=== PATIENT | female | born 1990 | race Caucasian/White ===

== ENCOUNTER 2020-05-05 11:13 | Outpatient (REF) | payer OTHER, SELFPAY ==
[2020-05-05 14:01] LABS: MANUAL DIFF FLAG NO
[2020-05-05 14:02] LABS: Basophils Percent Auto 0.4 % (0-2); Eosinophils Absolute Auto 0.1 X10*3/uL (0.0-0.4); Eosinophils Percent Auto 1.7 % (0-4); Hematocrit 31.6 % (37-47); Hemoglobin 9.4 g/dl (12.0-16.0); Imm Gran Abs Auto 0.01 X10*3/uL (0.00-0.03); Imm Gran Pct Auto 0.2 % (0.0-0.4); Lymphocytes Absolute Auto 1.6 X10*3/uL (1.2-4.9); Lymphocytes Percent Auto 34.7 % (20-40); Mean Corpuscular HGB Conc 29.7 g/dl (31.0-35.0); Mean Corpuscular Hemoglobin 22.7 pg (27.0-33.0); Mean Corpuscular Volume 76.1 fL (80-98); Mean Platelet Volume 12.1 fL (9.4-12.3); Monocytes Absolute Auto 0.4 X10*3/uL (0.1-1.2); Monocytes Percent Auto 8.5 % (2-11); Neutrophils Absolute Auto 2.5 X10*3/uL (2.0-8.3); Neutrophils Percent Auto 54.5 % (45-73); Platelet Count 242 X10*3/uL (160-400); Red Blood Count 4.15 X10*6/uL (4.20-5.50); Red Cell Distribution Width 14.6 % (11.0-16.0); White Blood Count 4.6 X10*3/uL (4.8-10.8)
[2020-05-05 14:34] LABS: Iron 15 mcg/dL (30-160); Percent Iron Saturation 3 % (15-50); Total Iron Binding Capacity 444 mcg/dL (228-428); Unsaturated Iron Binding 429 ug/dL
[2020-05-05 14:59] LABS: Ferritin < 1 ng/mL (10-122)
== END 2020-05-05 11:14 | disposition home or self-care (01) ==
LOC: HO.HMGCLDS 11:13
PROVIDERS: PCP Nurse Practitioner Family; Visit Provider Nurse Practitioner Family
DX: E61.1 Iron deficiency (principal)
CPT/HCPCS: 36415; 82728; 83540; 85025

== ENCOUNTER 2020-05-12 09:02 | Outpatient (REF) | payer OTHER, SELFPAY ==
--- NOTE | 2020-05-12 09:07 | US_ITS ---
EXAMINATION: US ABDOMEN COMPLETE CLINICAL INFORMATION: Cholesterolosis of the gallbladder. COMPARISON: Ultrasound 09/13/2019 TECHNIQUE: Real-time imaging of the abdominal viscera. FINDINGS: PANCREAS: Normal. ABDOMINAL AORTA: The proximal, mid, and distal segments are normal in caliber. INFERIOR VENA CAVA: Visualized portions are normal. LIVER: Normal. The liver is normal in size. The liver contour is normal. Parenchymal echogenicity is normal. No focal hepatic lesion. There is no intrahepatic biliary duct dilatation seen. GALLBLADDER: There is a 4 mm nondependent gallbladder wall polyp, similar in appearance to the prior study. The gallbladder is physiologically distended without evidence of stones, sludge, wall thickening or pericholecystic fluid. COMMON BILE DUCT: Normal in caliber measuring 0.4 cm in diameter. RIGHT KIDNEY: Normal. No hydronephrosis. No renal calculi or focal parenchymal lesions. The kidney measures 10.8 cm in maximum dimension. LEFT KIDNEY: Normal. No hydronephrosis. No renal calculi or focal parenchymal lesions. The kidney measures 10.2 cm in maximum dimension. SPLEEN: Normal. The spleen measures 10.4 cm in maximum dimension. FREE FLUID: None. US/US abdomen complete IMPRESSION: 4 mm nondependent gallbladder wall polyp is seen. This previously measured 3 mm, not convincingly changed. There are differing management algorithms advocated for in the radiology literature for small gallbladder wall polyps of this size. Some suggest annual ultrasound follow-up while others suggest no follow-up is needed.
== END 2020-05-12 09:03 | disposition home or self-care (01) ==
LOC: HO.HMGCX 09:02
PROVIDERS: PCP Nurse Practitioner Family; Visit Provider Nurse Practitioner Family
DX: K82.4 Cholesterolosis of gallbladder (principal)
CPT/HCPCS: 76700

== ENCOUNTER → 2020-06-23 09:19 | Outpatient (BNV) | payer OTHER, SELFPAY | PROVIDERS: PCP Nurse Practitioner Family; Referring Provider Nurse Practitioner Family; Visit Provider Internal Medicine | DX: D50.9 Iron deficiency anemia, unspecified (principal) | CPT/HCPCS: 99203; 99213; 99214 ==

== ENCOUNTER 2020-07-08 09:45 | Outpatient (REF) | payer OTHER, SELFPAY | END 2020-07-08 09:46 | disposition home or self-care (01) | LOC: HO.MDS 09:45 | PROVIDERS: PCP Nurse Practitioner Family; Visit Provider Internal Medicine | DX: D50.9 Iron deficiency anemia, unspecified (principal) | CPT/HCPCS: 96365; J1756 ==

== ENCOUNTER 2020-07-14 13:11 | Outpatient (REF) | payer OTHER, SELFPAY | END 2020-07-14 13:12 | disposition home or self-care (01) | LOC: HO.MDS 13:11 | PROVIDERS: PCP Nurse Practitioner Family; Visit Provider Internal Medicine | DX: D50.9 Iron deficiency anemia, unspecified (principal) | CPT/HCPCS: 96365; J1756 ==

== ENCOUNTER 2020-07-24 10:55 | Outpatient (REF) | payer OTHER, SELFPAY | END 2020-07-24 10:56 | disposition home or self-care (01) | LOC: HO.MDS 10:55 | PROVIDERS: PCP Nurse Practitioner Family; Visit Provider Internal Medicine | DX: D50.9 Iron deficiency anemia, unspecified (principal) | CPT/HCPCS: 96365; J1756 ==

== ENCOUNTER 2020-10-01 08:06 | Outpatient (REF) | payer OTHER, SELFPAY | END 2020-10-01 08:07 | disposition home or self-care (01) | LOC: HO.MDS 08:06 | PROVIDERS: PCP Nurse Practitioner Family; Visit Provider Internal Medicine | DX: D50.9 Iron deficiency anemia, unspecified (principal) | CPT/HCPCS: 96365; 96366; J1200; J1750; Q0163 ==

== ENCOUNTER 2020-10-06 09:31 | Outpatient (REF) | payer OTHER, SELFPAY ==
[2020-10-06 11:11] LABS: MANUAL DIFF FLAG NO
[2020-10-06 11:27] LABS: Basophils Percent Auto 0.3 % (0-2); Eosinophils Absolute Auto 0.1 X10*3/uL (0.0-0.4); Eosinophils Percent Auto 1.4 % (0-4); Hematocrit 36.1 % (37-47); Hemoglobin 10.6 g/dl (12.0-16.0); Imm Gran Abs Auto 0.01 X10*3/uL (0.00-0.03); Imm Gran Pct Auto 0.2 % (0.0-0.4); Lymphocytes Absolute Auto 1.2 X10*3/uL (1.2-4.9); Lymphocytes Percent Auto 19.7 % (20-40); Mean Corpuscular HGB Conc 29.4 g/dl (31.0-35.0); Mean Corpuscular Hemoglobin 23.3 pg (27.0-33.0); Mean Corpuscular Volume 79.3 fL (80-98); Mean Platelet Volume 11.7 fL (9.4-12.3); Monocytes Absolute Auto 0.5 X10*3/uL (0.1-1.2); Monocytes Percent Auto 7.8 % (2-11); Neutrophils Absolute Auto 4.2 X10*3/uL (2.0-8.3); Neutrophils Percent Auto 70.6 % (45-73); Platelet Count 248 X10*3/uL (160-400); Red Blood Count 4.55 X10*6/uL (4.20-5.50); Red Cell Distribution Width 16.1 % (11.0-16.0); White Blood Count 5.9 X10*3/uL (4.8-10.8)
[2020-10-06 11:53] LABS: Alanine Aminotransferase 27 U/L (0-31); Albumin Level 4.4 g/dL (3.5-5.0); Alkaline Phosphatase 50 U/L (39-117); Anion Gap 13 (12-20); Aspartate Amino Transferase 23 U/L (5-31); Bilirubin Total 0.6 mg/dL (0.0-1.0); Blood Urea Nitrogen 17 mg/dL (9-16); Calcium 8.7 mg/dL (8.4-10.2); Carbon Dioxide 25 mmol/L (22-29); Chloride 106 mmol/L (96-108); Estimated Glomerular Filt Rate > 60; Glucose Random 80 mg/dL (60-115); Iron 197 mcg/dL (30-160); Percent Iron Saturation 41 % (15-50); Potassium 3.5 mmol/L (3.3-5.1); Sodium 140 mmol/L (135-145); Total Iron Binding Capacity 485 mcg/dL (228-428); Total Protein 7.2 g/dL (6.5-8.0); Unsaturated Iron Binding 288 ug/dL
[2020-10-06 11:56] LABS: Ferritin 662 ng/mL (10-122); TSH reflex Free T4 0.52 uIU/mL (0.32-4.0)
== END 2020-10-06 09:32 | disposition home or self-care (01) ==
LOC: HO.HMGCLDS 09:31
PROVIDERS: PCP Nurse Practitioner Family; Visit Provider Nurse Practitioner Family
DX: E61.1 Iron deficiency (principal); R53.83 Other fatigue
CPT/HCPCS: 36415; 80053; 82728; 83540; 84443; 85025

== ENCOUNTER 2020-10-15 08:34 | Outpatient (REF) | payer OTHER, SELFPAY ==
--- NOTE | ~2020-10-15 | US_ITS ---
EXAMINATION: US ABDOMEN COMPLETE CLINICAL INFORMATION: Cholesterolosis of gallbladder. COMPARISON: Ultrasound abdomen complete dated 05/12/2020 and 09/13/2019. TECHNIQUE: Real-time imaging of the abdominal viscera. FINDINGS: PANCREAS: Normal. ABDOMINAL AORTA: The proximal, mid, and distal segments are normal in caliber. INFERIOR VENA CAVA: Visualized portions are normal. LIVER: Normal. The liver is normal in size. The liver contour is normal. Parenchymal echogenicity is normal. No focal hepatic lesion. There is no intrahepatic biliary duct dilatation seen. GALLBLADDER: There is a 4 x 4 by 3 mm hypoechoic lesion adjacent to the gallbladder wall that does not move or shadow suggestive of a polyp. This is similar to previous exam. No gallstones are seen. The gallbladder is normal in size. The gallbladder wall is otherwise normal. COMMON BILE DUCT: Normal in caliber measuring 0.4 cm in diameter. RIGHT KIDNEY: There is a 2 mm echogenic density with twinkle artifact in the upper pole questionable for a stone. No hydronephrosis or focal parenchymal lesions. The kidney measures 11.3 cm in maximum dimension. LEFT KIDNEY: Normal. No hydronephrosis. No renal calculi or focal parenchymal lesions. The kidney measures 9.8 cm in maximum dimension. SPLEEN: Normal. The spleen measures 10.9 cm in maximum dimension. FREE FLUID: None. US/US abdomen complete IMPRESSION: Stable small gallbladder wall polyp. Question small right renal stone.
== END 2020-10-15 08:35 | disposition home or self-care (01) ==
LOC: HO.US 08:34
PROVIDERS: Visit Provider Nurse Practitioner Family
DX: K82.4 Cholesterolosis of gallbladder (principal)
CPT/HCPCS: 76700

== ENCOUNTER 2020-12-29 11:30 | Outpatient (RCR) | payer OTHER, SELFPAY ==
--- NOTE | 2020-12-24 11:59 | MHC.PT.EP ---
[facility] [place] Office [place] [facility] [place] Office [address] [phone] F: [phone] F: [phone] F: [phone] F: [phone] Physical Therapy Plan of Care Date of Evaluation: Date of Surgery: NA Diagnosis: Dizziness and Giddiness Assessment: Charito is a 30 year old female referred to PT for dizziness and giddiness . On PT examination she presented with normal saccades, smooth pursuit, static and dynamic balance hoewver her DVA was 5 lines and she was positive for left PC and HC BPPV. 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 She is motivated for PT. Frequency and Duration: The patient will be seen 2x week for 4 weeks Short Term Goals: 1. Patient to be educated on symptoms and indications to return to therapy when needed min 4 weeks. 2. Pt will be negative for nystagmus or reports of vertigo in all diagnostic positions bilaterally to resolution of BPPV in 4 weeks. Clinical Documentation Manager Goals: 1. Patient to be able to functionally move in all planes and directions without provocation of dizziness to show return to PLOF in 6 weeks. Treatment Plan: Modalities to reduce pain, spasms and effusion. Manual therapy to restore motion and function. Therapeutic exercise to improve strength and flexibility. Neuromuscular re-education for posture and balance. Therapeutic activities to return to functional activities of daily living. Electronically signed by: Shruthi Weber PT DPT Please sign and return to therapist. Thank you for your referral.
--- NOTE | 2021-01-29 14:38 | MHC.PT.DC ---
[facility] [place] Office [place] Office [place] Office [address] [facility] [phone] F: [phone] F: [phone] F: [phone] F: [phone] Physical Therapy Discharge Report Diagnosis: Dizziness and Giddiness Date of Surgery: NA Date of Evaluation: 12/24/20 Date of Discharge: 01/29/21 Treatments to Date: 2 Cancellations to Date: 0 No Shows to Date: 0 Discharge Status: Achieved Goals Improved Function Discharge Summary: Charito did not have any of symptoms of vestibular dysfunction for over a month. She has therefore been d/c from therapy Electronically signed by: Shruthi Weber PT DPT Please sign and return to therapist. Thank you for your referral.
== END 2021-01-29 14:39 | disposition home or self-care (01) ==
LOC: HO.PT 11:30
PROVIDERS: PCP Nurse Practitioner Family; Visit Provider Nurse Practitioner Family
DX: R42 Dizziness and giddiness (principal)
CPT/HCPCS: 95992; 97112; 97161

== ENCOUNTER 2021-03-10 09:35 | Outpatient (REF) | payer OTHER, SELFPAY ==
[2021-03-10 11:09] LABS: MANUAL DIFF FLAG NO
[2021-03-10 11:18] LABS: Basophils Percent Auto 0.4 % (0-2); Eosinophils Absolute Auto 0.1 X10*3/uL (0.0-0.4); Eosinophils Percent Auto 1.9 % (0-4); Hematocrit 39.4 % (37-47); Hemoglobin 13.1 g/dl (12.0-16.0); Imm Gran Abs Auto 0.02 X10*3/uL (0.00-0.03); Imm Gran Pct Auto 0.4 % (0.0-0.4); Lymphocytes Absolute Auto 1.7 X10*3/uL (1.2-4.9); Lymphocytes Percent Auto 37.1 % (20-40); Mean Corpuscular HGB Conc 33.2 g/dl (31.0-35.0); Mean Corpuscular Hemoglobin 28.9 pg (27.0-33.0); Mean Corpuscular Volume 86.8 fL (80-98); Mean Platelet Volume 11.2 fL (9.4-12.3); Monocytes Absolute Auto 0.4 X10*3/uL (0.1-1.2); Monocytes Percent Auto 8.2 % (2-11); Neutrophils Absolute Auto 2.4 X10*3/uL (2.0-8.3); Platelet Count 201 X10*3/uL (160-400); Red Blood Count 4.54 X10*6/uL (4.20-5.50); Red Cell Distribution Width 11.9 % (11.0-16.0); White Blood Count 4.6 X10*3/uL (4.8-10.8)
[2021-03-10 11:27] LABS: Appearance Urine HAZY; Color Urine YELLOW; Glucose Urine UA NEG (NEG); Leukocyte Esterase Urine NEG (NEG); Nitrite Urine NEG (NEG); PH 7.5 (5.0-8.0); Urine Blood NEG (NEG); Urine Ketones NEG (NEG); Urine Protein NEG (NEG-TRACE)
[2021-03-10 12:03] LABS: Ferritin 34 ng/mL (10-122); TSH reflex Free T4 0.62 uIU/mL (0.32-4.0)
[2021-03-10 12:10] LABS: Alanine Aminotransferase 23 U/L (0-31); Albumin Level 4.5 g/dL (3.5-5.0); Alkaline Phosphatase 55 U/L (39-117); Anion Gap 13 (12-20); Aspartate Amino Transferase 19 U/L (5-31); Bilirubin Total 0.7 mg/dL (0.0-1.0); Blood Urea Nitrogen 11 mg/dL (9-16); Calcium 9.3 mg/dL (8.4-10.2); Carbon Dioxide 23 mmol/L (22-29); Chloride 107 mmol/L (96-108); Cholesterol 151 mg/dL; Estimated Glomerular Filt Rate > 60; Glucose Fasting 74 mg/dL (60-99); HDL Cholesterol 51 mg/dL; Iron 62 mcg/dL (30-160); LDL Cholesterol Calculated 88 mg/dl; Percent Iron Saturation 17 % (15-50); Sodium 139 mmol/L (135-145); Total Iron Binding Capacity 357 mcg/dL (228-428); Total Protein 7.6 g/dL (6.5-8.0); Triglycerides 60 mg/dL; Unsaturated Iron Binding 295 ug/dL
== END 2021-03-10 09:36 | disposition home or self-care (01) ==
LOC: HO.HMGCLDS 09:35
PROVIDERS: PCP Nurse Practitioner Family; Visit Provider Nurse Practitioner Family
DX: Z00.00 Encounter for general adult medical examination without abnormal findings (principal); E61.1 Iron deficiency
CPT/HCPCS: 36415; 80053; 80061; 81003; 82728; 83540; 84443; 85025

== ENCOUNTER 2021-03-24 14:53 | Outpatient (REF) | payer OTHER, SELFPAY | END 2021-03-24 14:54 | disposition home or self-care (01) | LOC: HO.LAB 14:53 | PROVIDERS: Visit Provider Physician Assistant Medical | DX: Z20.822 Contact with and (suspected) exposure to COVID-19 (principal) | CPT/HCPCS: 87071; U0003; U0005 ==

== ENCOUNTER 2021-11-24 08:50 | Outpatient (REF) | payer OTHER, SELFPAY ==
--- NOTE | ~2021-11-24 | US_ITS ---
EXAMINATION: US ABDOMEN LIMITED CLINICAL INFORMATION: Cholesterolosis of the gallbladder. COMPARISON: Ultrasound abdomen complete 10/15/2020 and 05/12/2020. CT abdomen and pelvis 07/20/2015. TECHNIQUE: Real-time imaging of the right upper quadrant abdominal viscera. FINDINGS: PANCREAS: Normal. LIVER: Normal. The liver is normal in size. The liver contour is normal. Parenchymal echogenicity is normal. No focal hepatic lesion. There is no intrahepatic biliary duct dilatation seen. GALLBLADDER: Gallbladder polyp is noted measuring 3 x 4 x 4 mm, similar to previous. The gallbladder is physiologically distended without evidence of stones, sludge, wall thickening or pericholecystic fluid. COMMON BILE DUCT: Normal in caliber measuring 0.3 cm in diameter. RIGHT KIDNEY: Normal. No hydronephrosis. No renal calculi or focal parenchymal lesions. The kidney measures 11.0 cm in maximum dimension. FREE FLUID: None. US/US abdomen limited IMPRESSION: Gallbladder polyp is once again seen not significantly changed from previous. No ductal dilatation. No evidence of gallbladder wall edema.
== END 2021-11-24 08:51 | disposition home or self-care (01) ==
LOC: HO.US 08:50
PROVIDERS: Visit Provider Nurse Practitioner Family
DX: K82.4 Cholesterolosis of gallbladder (principal)
CPT/HCPCS: 76705

== ENCOUNTER 2022-03-15 10:18 | Outpatient (REF) | payer OTHER, SELFPAY ==
[2022-03-15 11:39] LABS: Basophils Percent Auto 0.7 % (0-2); Eosinophils Absolute Auto 0.1 X10*3/uL (0.0-0.4); Eosinophils Percent Auto 2.1 % (0-4); Hematocrit 34.3 % (37.0-47.0); Hemoglobin 10.8 g/dl (12.0-16.0); Lymphocytes Absolute Auto 1.6 X10*3/uL (1.2-4.9); Lymphocytes Percent Auto 54.5 % (20-40); Mean Corpuscular HGB Conc 31.5 g/dl (31.0-35.0); Mean Corpuscular Hemoglobin 24.4 pg (27.0-33.0); Mean Corpuscular Volume 77.6 fL (80.0-98.0); Mean Platelet Volume 11.4 fL (9.4-12.3); Monocytes Absolute Auto 0.3 X10*3/uL (0.1-1.2); Monocytes Percent Auto 11.5 % (2-11); Neutrophils Absolute Auto 0.9 x10*3/uL (2.0-8.3); Neutrophils Percent Auto 31.2 % (45-73); Platelet Count 220 X10*3/uL (160-400); Red Blood Count 4.42 X10*6/uL (4.20-5.50); Red Cell Distribution Width 13.8 % (11.0-16.0); SCAN SMEAR FLAG 1; White Blood Count 2.9 X10*3/uL (4.8-10.8)
[2022-03-15 11:42] LABS: Appearance Urine Clear; Color Urine Yellow; Glucose Urine UA Negative (Negative); Leukocyte Esterase Urine Trace (Negative); Nitrite Urine Negative (Negative); PH 6.5 (5.0-9.0); UMIC TRIGGER UACC YES; Urine Blood Large (3+) (Negative); Urine Ketones Trace mg/dL (Negative); Urine Protein Trace mg/dL (Neg-Trace)
[2022-03-15 11:58] LABS: Alanine Aminotransferase 17 U/L (0-31); Albumin Level 4.3 g/dL (3.5-5.0); Alkaline Phosphatase 47 U/L (39-117); Anion Gap 12 (12-20); Aspartate Amino Transferase 16 U/L (5-31); Bilirubin Total 0.6 mg/dL (0.0-1.0); Blood Urea Nitrogen 11 mg/dL (9-16); Calcium 9.1 mg/dL (8.4-10.2); Carbon Dioxide 25 mmol/L (22-29); Chloride 105 mmol/L (96-108); Cholesterol 146 mg/dL; Estimated Glomerular Filt Rate > 60; Glucose Fasting 86 mg/dL (60-99); HDL Cholesterol 40 mg/dL; LDL Cholesterol Calculated 92 mg/dl; Potassium 4.1 mmol/L (3.3-5.1); Sodium 138 mmol/L (135-145); Total Protein 7.4 g/dL (6.5-8.0); Triglycerides 73 mg/dL
[2022-03-15 12:07] LABS: TSH reflex Free T4 0.56 uIU/mL (0.32-4.0)
[2022-03-15 12:09] LABS: MANUAL DIFF FLAG NO
[2022-03-15 12:16] LABS: Bacteria Urine None Seen (None Seen); Hyaline Casts Urine 0-2 /LPF (0-2); RBC Urine >20 /HPF (0-2); WBC Urine 0-5 /HPF (0-5)
== END 2022-03-15 10:19 | disposition home or self-care (01) ==
LOC: HO.HMGCLDS 10:18
PROVIDERS: PCP Nurse Practitioner Family; Visit Provider Nurse Practitioner Family
DX: Z00.00 Encounter for general adult medical examination without abnormal findings (principal)
CPT/HCPCS: 36415; 80053; 80061; 81001; 84443; 85025

== ENCOUNTER 2022-03-25 14:38 | Outpatient (REF) | payer OTHER, SELFPAY ==
--- NOTE | ~2022-03-25 | US_ITS ---
EXAMINATION: US PELVIS CLINICAL INFORMATION: Last menstrual period approximately 2 weeks ago. COMPARISON: 02/28/2018 TECHNIQUE: Ultrasound of the pelvis is performed using both transabdominal and transvaginal transducers along with Doppler. Transvaginal imaging is performed due to inadequate visualization transabdominally. FINDINGS: The uterus is heterogeneous and measures approximately 11.4 x 4.9 x 7.6 cm on the right and 9.6 x 5.1 x 7.6 cm on the left. 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 Right uterine horn endometrial thickness is 1.2 cm and left 1.1 cm. Trace amount of fluid in the cervix and lower uterine segment. Small amount of free fluid in the pelvis. Nabothian cysts present. Unremarkable left ovary measures 3.5 x 1.7 x 1.5 cm, volume 4.9 mL. Right ovary measures 3.5 x 2.6 x 3.5 cm, volume 16.9 mL. Simple right ovarian cysts measure 1.2 x 1.9 x 2.0 cm and 1.6 x 2.0 x 2.2 cm. US/US pelvic and transvaginal IMPRESSION: 1. 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 2. Right ovarian 2.0 cm and 2.2 cm cysts appear simple. 3. Trace amount of fluid in the cervix or lower uterine segment. Small amount of free fluid in the pelvis.
== END 2022-03-25 14:39 | disposition home or self-care (01) ==
LOC: HO.HMGCX 14:38
PROVIDERS: Visit Provider Nurse Practitioner Family
DX: R10.2 Pelvic and perineal pain (principal)
CPT/HCPCS: 76830; 76856

== ENCOUNTER 2022-06-24 12:57 | Outpatient (REF) | payer OTHER, SELFPAY | END 2022-06-24 12:58 | disposition home or self-care (01) | LOC: HO.HMGCX 12:57 | PROVIDERS: PCP Nurse Practitioner Family; Visit Provider Obstetrics & Gynecology | DX: R10.2 Pelvic and perineal pain (principal); N83.209 Unspecified ovarian cyst, unspecified side | CPT/HCPCS: 76830; 76856 ==

== ENCOUNTER 2022-07-01 09:05 | Outpatient (REF) | payer OTHER, SELFPAY | END 2022-07-01 09:06 | disposition home or self-care (01) | LOC: HO.MDS 09:05 | PROVIDERS: Visit Provider Internal Medicine | DX: D50.9 Iron deficiency anemia, unspecified (principal) | CPT/HCPCS: 96365; J1756 ==

== ENCOUNTER 2022-07-08 13:24 | Outpatient (REF) | payer OTHER, SELFPAY | END 2022-07-08 13:25 | disposition home or self-care (01) | LOC: HO.MDS 13:24 | PROVIDERS: Visit Provider Internal Medicine | DX: Z53.8 Procedure and treatment not carried out for other reasons (principal) | CPT/HCPCS: 96365 ==

== ENCOUNTER 2022-07-08 13:30 | Outpatient (REF) | payer OTHER, SELFPAY | END 2022-07-08 13:31 | disposition home or self-care (01) | LOC: HO.MDS 13:30 | PROVIDERS: Visit Provider Internal Medicine | DX: D50.9 Iron deficiency anemia, unspecified (principal) | CPT/HCPCS: J1756 ==

== ENCOUNTER 2022-07-11 10:19 | Outpatient (REF) | payer OTHER, SELFPAY ==
[2022-07-11 11:20] LABS: MANUAL DIFF FLAG NO
[2022-07-11 11:28] LABS: Basophils Percent Auto 0.3 % (0-2); Eosinophils Absolute Auto 0.1 X10*3/uL (0.0-0.4); Eosinophils Percent Auto 1.8 % (0-4); Imm Gran Abs Auto 0.01 X10*3/uL (0.00-0.03); Imm Gran Pct Auto 0.3 % (0.0-0.4); Lymphocytes Absolute Auto 1.2 X10*3/uL (1.2-4.9); Lymphocytes Percent Auto 35.4 % (20-40); Mean Corpuscular HGB Conc 30.8 g/dl (31.0-35.0); Mean Corpuscular Hemoglobin 24.3 pg (27.0-33.0); Mean Corpuscular Volume 79.1 fL (80.0-98.0); Mean Platelet Volume 11.4 fL (9.4-12.3); Monocytes Absolute Auto 0.3 X10*3/uL (0.1-1.2); Monocytes Percent Auto 8.9 % (2-11); Neutrophils Absolute Auto 1.7 x10*3/uL (2.0-8.3); Neutrophils Percent Auto 53.3 % (45-73); Platelet Count 229 X10*3/uL (160-400); Red Blood Count 4.93 X10*6/uL (4.20-5.50); Red Cell Distribution Width 15.3 % (11.0-16.0); White Blood Count 3.3 X10*3/uL (4.8-10.8)
[2022-07-11 11:53] LABS: Anion Gap 13 (12-20)
[2022-07-11 12:03] LABS: Alanine Aminotransferase 14 U/L (0-31); Albumin Level 4.8 g/dL (3.5-5.0); Alkaline Phosphatase 51 U/L (39-117); Aspartate Amino Transferase 14 U/L (5-31); Bilirubin Total 0.9 mg/dL (0.0-1.0); C Reactive Protein < 0.04 mg/dL (< or = 0.50); Calcium 9.9 mg/dL (8.4-10.2); Carbon Dioxide 26 mmol/L (22-29); Chloride 104 mmol/L (96-108); Estimated Glomerular Filt Rate > 60; Glucose Random 84 mg/dL (60-115); Iron 77 mcg/dL (30-160); Percent Iron Saturation 21 % (15-50); Potassium 4.1 mmol/L (3.3-5.1); Rheumatoid Factor < 13.0 IU/mL (<15.0); Sodium 139 mmol/L (135-145); Total Iron Binding Capacity 371 mcg/dL (228-428); Total Protein 7.9 g/dL (6.5-8.0); Unsaturated Iron Binding 294 ug/dL
[2022-07-11 12:12] LABS: Erythrocyte Sedimentation Rate 6 MM/HR (0-20)
[2022-07-11 12:27] LABS: Blood Urea Nitrogen 12 mg/dL (9-16)
[2022-07-11 12:31] LABS: Folate 8.2 ng/mL (> or = 4.0); Vitamin B12 307 pg/mL (200-900)
[2022-07-11 12:36] LABS: Ferritin 149 ng/mL (10-122); TSH reflex Free T4 0.63 uIU/mL (0.32-4.0)
[2022-07-13 14:43] LABS: Cyclic Citrullinated Peptide <16 UNITS
[2022-07-13 22:29] LABS: A. Phagocytphilium DNA,RT-PCR NOT DETECTED (NOT DETECTED); Babesia Microti DNA, RT-PCR NOT DETECTED (NOT DETECTED); Borrelia Miyamotoi,DNA RT-PCR NOT DETECTED (NOT DETECTED); E.Chaffeensis DNA RT-PCR NOT DETECTED (NOT DETECTED); Lyme(Borrelia ssp)DNA RT-PCR NOT DETECTED (NOT DETECTED)
[2022-07-14 12:24] LABS: Anti Nuclear Antibody Screen POSITIVE (NEGATIVE)
[2022-07-16 12:43] LABS: DNAds, Crithidia Antibody Negative (Negative)
== END 2022-07-11 10:20 | disposition home or self-care (01) ==
LOC: HO.HMGCLDS 10:19
PROVIDERS: PCP Nurse Practitioner Family; Visit Provider Nurse Practitioner Family
DX: E61.1 Iron deficiency (principal); M79.606 Pain in leg, unspecified
CPT/HCPCS: 36415; 80053; 82550; 82607; 82728; 82746; 83540; 84443; 85025; 85652; 86038; 86039; 86140; 86200; 86255; 86431; 87798; 87801

== ENCOUNTER 2022-07-12 09:34 | Outpatient (REF) | payer OTHER, SELFPAY | END 2022-07-12 09:35 | disposition home or self-care (01) | LOC: HO.MDS 09:34 | PROVIDERS: Visit Provider Internal Medicine | DX: D50.9 Iron deficiency anemia, unspecified (principal) | CPT/HCPCS: 96365; J1756 ==

== ENCOUNTER → 2022-10-25 09:41 | Outpatient (BNVA) | payer OTHER, SELFPAY | PROVIDERS: PCP Nurse Practitioner Family; Visit Provider Student in an Organized Health Care Education/Training Program | DX: R76.8 Other specified abnormal immunological findings in serum (principal); D50.0 Iron deficiency anemia secondary to blood loss (chronic) | CPT/HCPCS: 99202 ==

== ENCOUNTER 2023-03-13 10:48 | Outpatient (AMB) | payer OTHER, SELFPAY ==
[2023-03-13 11:08] VITALS: BP 110/70; PULSE 93; O2SAT 100; BMI 23.2
--- NOTE | 2023-03-13 11:08 | A.OFFPC_ITS ---
Vital Signs 03/13/23 11:08 Height 5 ft 3 in Weight 131 lb 4 oz BMI 23.2 BP 110/70 Blood Pressure Location Rt brachial Position Sitting Pulse 93 Pulse Source Pulse Oximeter Pulse Oximetry (%) 100 Oxygen Delivery Method Room Air Intake Visit Reasons: annual PE Allergies metoclopramide [From Reglan] Allergy (Intermediate, Verified 03/13/23 11:10) Anxiety [place] And Derivatives [CITRUS AND DERIVATIVES] Allergy (Unknown, Verified 03/13/23 11:10) HIVES kiwi [KIWI (ACTINIDIA CHINENSIS)] Allergy (Unknown, Verified 03/13/23 11:10) UNKNOWN orange Allergy (Unknown, Verified 03/13/23 11:10) ANAPHYLAXIS pineapple [PINEAPPLE] Allergy (Unknown, Verified 03/13/23 11:10) UNKNOWN Tobacco use date assessed: 03/13/23 Dental Screening Dental Screen Date: 03/13/23 Did you have a dental visit in the last 12 months?: Yes Did you have a dental problem in the last 6 months where you did not have access to dental care?: No Was dental information given to patient?: Patient has dentist HPI annual PE HPI Details Pt is here for a PE. Will order labs. Pt c/o intermittent fatigue. She has a hx of anemia. Will order labs. [facility] Medical History Diverticulosis Gallbladder polyp Iron deficiency Left ovarian cyst PVCs (premature ventricular contractions) Syncope Surgical History Previous section Family History Father Substance use disorder Mother Mental health disorder Brother Brain cancer Brother Substance use disorder Son No problems noted. Maternal Grandmother Colon cancer Maternal Aunt Substance use disorder Lupus Maternal Uncle Substance use disorder Paternal Aunt Substance use disorder Paternal Uncle Substance use disorder Social History Housing: House Alcohol intake: current Alcohol intake frequency: a few times a month Patient Tobacco Use Status: Never used Tobacco e-Cigarette/Vaping Use: Never Used Second Hand Smoke Exposure: No service: No Current occupational status: employed Current occupation: [employer] Current occupational exposures/hazards: No Cognitive needs: No Hearing needs: No Vision needs: No Questionnaire Thrive Questionnaire Date Thrive assessed: 07/11/22 HEIDI-7 AMB Questionnaire HEIDI-7 Date HEIDI - 7 assessed: 07/11/22 Source: Developed by Drs. Jeovany Mukherjee, Vale Escoto, Ramin Abdalla and colleagues, with an educational maria t from [employer]. Review of Systems Const Denies chills and Denies fever(s) Eyes Denies blurry vision ENT Denies vertigo, Denies dizziness and Denies sore throat Card Denies chest pain at rest, Denies chest pain with activity, Denies diaphoresis, Denies dyspnea and Denies dyspnea on exertion Resp Denies cough, Denies dyspnea, Denies dyspnea on exertion and Denies wheezing GI Denies abdominal pain, Denies melena, Denies hematochezia, Denies constipation, Denies diarrhea and Denies loose stools Denies hematuria Musc Denies numbness and Denies tingling Skin/Breast Denies lesions Neuro Denies vertigo, Denies dizziness, Denies numbness and Denies tingling Psych Denies anxiety, Denies depression, Denies homicidal ideation, Denies suicidal ideation and Denies other (substance abuse) Aller/Immun Denies wheezing Physical exam (Primary Care) Vital Signs: Last Vital Signs Pulse 93 03/13/23 11:08 BP 110/70 03/13/23 11:08 Pulse Ox 100 03/13/23 11:08 Oxygen Delivery Method Room Air 03/13/23 11:08 BMI result Body Mass Index 23.2 Tobacco/Smoking Status: Tobacco use Status Tobacco use date assessed 03/13/23 03/13/23 11:12 Patient Tobacco Use Status Never used Tobacco 03/13/23 11:12 e-Cigarette/Vaping Use Never Used 03/13/23 11:12 Thrive Assessment: Date of Thrive Assessment Date Thrive assessed 07/11/22 03/13/23 11:12 Const General: cooperative Nutritional Appearance: well nourished Orientation/consciousness: patient oriented x3 HENMT Head: Yes normal to inspection, Yes normocephalic and Yes atraumatic Ears: TM's normal bilaterally Eyes General: appearance normal, both eyes and all related structures Alignment and Position: alignment normal and position normal Neck Neck: Yes normal visual inspection and Yes no lymphadenopathy Thyroid: Thyroid normal Resp Effort & Inspection: normal respiratory effort Auscultation: clear to auscultation bilaterally Cardio Rate: regular rate Rhythm: regular rhythm Heart sounds: S1 normal heart sound present, S2 normal heart sound present and no murmurs GI Palpation (GI): Soft to palpation and nontender Auscultation: normal bowel sounds Skin Rashes: no rashes Neuro General: patient oriented x3, moves all extremities, no focal motor deficits and deep tendon reflexes 2+ bilaterally Romberg Test: Negative Psych Appearance: grossly normal Mental Status: mental status grossly normal Speech and movement: Normal speech and movement present Affect: normal affect Attitude: cooperative Thought process: Normal thought process present Thought content: Normal thought content present Insight: Good insight present (Psych) Judgement: Good judgement present (Psych) Assessment and Plan Assessment & Plan (1) Physical exam: Code(s): Z00.00 - Encounter for general adult medical examination without abnormal find ings Plan: Labs ordered (2) Fatigue: Code(s): R53.83 - Other fatigue Qualifiers: Fatigue type: unspecified Qualified Code(s): R53.83 - Other fatigue Plan: Labs ordered (3) Anemia: Code(s): D64.9 - Anemia, unspecified Plan: Labs ordered (4) NESSA positive: Code(s): R76.8 - Other specified abnormal immunological findings in serum Plan: Labs ordered Plan The patient agreed to the use of a biomedical engineering director for this encounter. Scribed for HUGO Crisostomo- by Luisa Senior biomedical engineering director, on 03/13/2023 at 11:20 EST. Orders: Orders IRON PROFILE Today D64.9 - Anemia, unspecified, R53.83 - Other fatigue Immunofixation Pnl, Serum Today D64.9 - Anemia, unspecified, R76.8 - Other specified abnormal immunological findings in serum Complete Blood Count Auto Diff Today Z00.00 - Encounter for general adult medical examination without abnormal findings Comprehensive [place]. Panel Fast Today Z00.00 - Encounter for general adult medical examination without abnormal findings TSH reflex Free T4 Today Z00.00 - Encounter for general adult medical examination without abnormal findings UA CC w/rflx Micro + Cult Today Z00.00 - Encounter for general adult medical examination without abnormal findings Lipid Panel Today Z00.00 - Encounter for general adult medical examination without abnormal findings Vitamin B12 and Folate Today R53.83 - Other fatigue, Z00.00 - Encounter for general adult medical examination without abnormal findings Ferritin Today D64.9 - Anemia, unspecified, R53.83 - Other fatigue Hemoglobin Electrophoresis Today D64.9 - Anemia, unspecified, R76.8 - Other specified abnormal immunological findings in serum Creatine Kinase Total Today R76.8 - Other specified abnormal immunological findings in serum Coding Level of Care Code Est Pt Prev Care 18-39y(52047) Diagnoses Physical exam Z00.00 Fatigue, unspecified type R53.83 Fatigue type: unspecified Anemia D64.9 NESSA positive R76.8
== END 2023-03-13 11:37 | disposition home or self-care (01) ==
PROVIDERS: PCP Nurse Practitioner Family; Visit Provider Nurse Practitioner Family
DX: Z00.00 Encounter for general adult medical examination without abnormal findings (principal); R53.83 Other fatigue; D64.9 Anemia, unspecified; R76.8 Other specified abnormal immunological findings in serum
CPT/HCPCS: 99395

== ENCOUNTER 2023-04-17 07:56 | Outpatient (REF) | payer OTHER, SELFPAY ==
[2023-04-17 11:22] LABS: Appearance Urine Turbid; Color Urine Yellow; Glucose Urine UA Negative (Negative); Leukocyte Esterase Urine Small (1+) (Negative); Nitrite Urine Negative (Negative); PH 5.5 (5.0-9.0); Specific Gravity - Urine >= 1.030 (1.005-1.025); UMIC TRIGGER UACC YES; Urine Blood Moderate (2+) (Negative); Urine Ketones Trace mg/dL (Negative); Urine Protein Trace mg/dL (Neg-Trace)
[2023-04-17 11:37] LABS: Basophils Percent Auto 0.4 % (0-2); Eosinophils Percent Auto 1.1 % (0-4); Hematocrit 37.7 % (37.0-47.0); Hemoglobin 11.5 g/dl (12.0-16.0); Lymphocytes Absolute Auto 1.4 X10*3/uL (1.2-4.9); Lymphocytes Percent Auto 51.5 % (20-40); MANUAL DIFF FLAG SCAN; Mean Corpuscular HGB Conc 30.5 g/dl (31.0-35.0); Mean Corpuscular Hemoglobin 24.8 pg (27.0-33.0); Mean Corpuscular Volume 81.4 fL (80.0-98.0); Mean Platelet Volume 12.3 fL (9.4-12.3); Monocytes Absolute Auto 0.3 X10*3/uL (0.1-1.2); Monocytes Percent Auto 10.1 % (2-11); Neutrophils Percent Auto 36.9 % (45-73); Platelet Count 222 X10*3/uL (160-400); Red Blood Count 4.63 X10*6/uL (4.20-5.50); Red Cell Distribution Width 13.1 % (11.0-16.0); SCAN SMEAR FLAG 1; White Blood Count 2.7 X10*3/uL (4.8-10.8)
[2023-04-17 11:52] LABS: Bacteria Urine 2+ (None Seen); Hyaline Casts Urine 0-2 /LPF (0-2); RBC Urine 0-2 /HPF (0-2); UACC Culture Trigger YES; WBC Urine 21-50 /HPF (0-5)
[2023-04-17 12:08] LABS: SLIDE REVIEW VERIFIED
[2023-04-17 12:29] LABS: Folate 8.3 ng/mL (> or = 4.0); Vitamin B12 381 pg/mL (200-900)
[2023-04-17 12:32] LABS: Alanine Aminotransferase 14 U/L (0-31); Albumin Level 4.4 g/dL (3.5-5.0); Alkaline Phosphatase 53 U/L (39-117); Anion Gap 14 (12-20); Aspartate Amino Transferase 17 U/L (5-31); Bilirubin Total 0.5 mg/dL (0.0-1.0); Blood Urea Nitrogen 15 mg/dL (9-16); Calcium 9.2 mg/dL (8.4-10.2); Carbon Dioxide 23 mmol/L (22-29); Chloride 106 mmol/L (96-108); Cholesterol 134 mg/dL (<200); Estimated Glomerular Filt Rate > 60; Glucose Fasting 87 mg/dL (60-99); HDL Cholesterol 52 mg/dL (>40); Iron 32 mcg/dL (30-160); LDL Cholesterol Calculated 71 mg/dL (<100); Percent Iron Saturation 9 % (15-50); Potassium 4.1 mmol/L (3.3-5.1); Sodium 139 mmol/L (135-145); Total Iron Binding Capacity 337 mcg/dL (228-428); Total Protein 7.5 g/dL (6.5-8.0); Triglycerides 55 mg/dL (<150); Unsaturated Iron Binding 305 ug/dL
[2023-04-17 12:41] LABS: Ferritin 6 ng/mL (10-122); TSH reflex Free T4 0.86 uIU/mL (0.32-4.0)
[2023-04-19 11:58] LABS: Hematocrit 35.2 % (35.0-45.0); Hemoglobin 11.1 g/dL (11.7-15.5); MCH 24.7 pg (27.0-33.0); MCV 78.4 fL (80.0-100.0); RBC 4.49 Million/uL (3.80-5.10); RDW 13.2 % (11.0-15.0)
[2023-04-20 09:13] LABS: IgA 316 mg/dL (47-310); IgG 1095 mg/dL (600-1640); IgM 189 mg/dL (50-300)
== END 2023-04-17 07:57 | disposition home or self-care (01) ==
LOC: HO.HMGCLDS 07:56
PROVIDERS: PCP Nurse Practitioner Family; Visit Provider Nurse Practitioner Family
DX: Z00.00 Encounter for general adult medical examination without abnormal findings (principal); R53.83 Other fatigue; R76.8 Other specified abnormal immunological findings in serum; D64.9 Anemia, unspecified; Z13.220 Encounter for screening for lipoid disorders
CPT/HCPCS: 36415; 80053; 80061; 81001; 82550; 82607; 82728; 82746; 82784; 83020; 83540; 84443; 85014; 85018; 85025; 85041; 86334; 87086

== ENCOUNTER 2023-06-13 16:10 | Outpatient (REF) | payer OTHER, SELFPAY ==
[2023-06-13 16:21] LABS: Hematocrit 35.3 % (37.0-47.0); Hemoglobin 10.9 g/dl (12.0-16.0); Mean Corpuscular HGB Conc 30.9 g/dl (31.0-35.0); Mean Corpuscular Hemoglobin 24.3 pg (27.0-33.0); Mean Corpuscular Volume 78.6 fL (80.0-98.0); Mean Platelet Volume 11.1 fL (9.4-12.3); Platelet Count 213 X10*3/uL (160-400); Red Blood Count 4.49 X10*6/uL (4.20-5.50)
[2023-06-13 16:53] LABS: Ferritin 4 ng/mL (10-122)
== END 2023-06-13 16:11 | disposition home or self-care (01) ==
LOC: HO.LAB 16:10
PROVIDERS: PCP Nurse Practitioner Family; Visit Provider Internal Medicine
DX: D64.9 Anemia, unspecified (principal)
CPT/HCPCS: 36415; 82728; 85027

== ENCOUNTER 2023-06-15 14:43 | Outpatient (REF) | payer OTHER, SELFPAY | END 2023-06-15 14:44 | disposition home or self-care (01) | LOC: HO.MDS 14:43 | PROVIDERS: Visit Provider Internal Medicine | DX: D50.8 Other iron deficiency anemias (principal) | CPT/HCPCS: 96365; J1756 ==

== ENCOUNTER 2023-06-19 14:53 | Outpatient (REF) | payer OTHER, SELFPAY | END 2023-06-19 14:54 | disposition home or self-care (01) | LOC: HO.MDS 14:53 | PROVIDERS: Visit Provider Internal Medicine Medical Oncology | DX: D50.9 Iron deficiency anemia, unspecified (principal) | CPT/HCPCS: 96365; J1756 ==

== ENCOUNTER 2023-09-12 08:15 | Outpatient (AMB) | payer OTHER, SELFPAY ==
[2023-09-12 08:23] VITALS: BP 112/62; PULSE 58; O2SAT 100; BMI 23.0
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
== END 2023-09-12 08:58 | disposition home or self-care (01) ==
PROVIDERS: PCP Nurse Practitioner Family; Visit Provider Nurse Practitioner Family
DX: S86.899A Other injury of other muscle(s) and tendon(s) at lower leg level, unspecified leg, initial encounter (principal); T74.21XA Adult sexual abuse, confirmed, initial encounter
CPT/HCPCS: 99213

== ENCOUNTER 2024-01-16 13:30 | Outpatient (RCR) | payer OTHER, SELFPAY ==
[2023-12-26 13:30] VITALS: BP 115/80; PULSE 67; RESP 16; TEMP 37.2; O2SAT 100
[2023-12-26] MEDS: Iron Sucrose Complex 200 MG in 0.9 % Sodium Chloride 100 ML 440 MG IV (13:36)
[2024-01-02 13:41] VITALS: BP 112/64; PULSE 65; RESP 16; TEMP 36.6; O2SAT 99
[2024-01-02] MEDS: Iron Sucrose Complex 200 MG in 0.9 % Sodium Chloride 100 ML 440 MG IV (13:55)
[2024-01-02] MEDS: 0.9 % Sodium Chloride Flush 10 ML SYRINGE 5 ML IVFLUSH (14:18)
[2024-01-09 14:46] VITALS: BMI 21.8
[2024-01-09 14:48] VITALS: BP 98/65; PULSE 71; RESP 18; TEMP 36.8; O2SAT 96
[2024-01-09] MEDS: Iron Sucrose Complex 200 MG in 0.9 % Sodium Chloride 100 ML 440 MG IV (15:03)
[2024-01-09] MEDS: 0.9 % Sodium Chloride Flush 10 ML SYRINGE 5 ML IVFLUSH (15:26)
[2024-01-16] MEDS: Iron Sucrose Complex 200 MG in 0.9 % Sodium Chloride 100 ML 440 MG IV (13:45)
[2024-01-16 13:47] LABS: MANUAL DIFF FLAG NO
[2024-01-16 13:48] VITALS: BP 98/63; PULSE 73; RESP 16; TEMP 36.8; O2SAT 98
--- NOTE | 2024-01-16 13:49 | HO.INF ---
pt requesting labs be drawn prior to start of 4th infusion. lab called and labs drawn. [facility] office called and MA notified.
[2024-01-16 13:55] LABS: Basophils Percent Auto 0.2 % (0-2); Eosinophils Percent Auto 0.2 % (0-4); Hemoglobin 11.8 g/dl (12.0-16.0); Imm Gran Abs Auto 0.01 X10*3/uL (0.00-0.03); Imm Gran Pct Auto 0.2 % (0.0-0.4); Lymphocytes Absolute Auto 1.4 X10*3/uL (1.2-4.9); Lymphocytes Percent Auto 25.7 % (20-40); Mean Corpuscular HGB Conc 32.8 g/dl (31.0-35.0); Mean Corpuscular Hemoglobin 26.5 pg (27.0-33.0); Mean Corpuscular Volume 80.9 fL (80.0-98.0); Mean Platelet Volume 10.7 fL (9.4-12.3); Monocytes Absolute Auto 0.4 X10*3/uL (0.1-1.2); Monocytes Percent Auto 7.1 % (2-11); Neutrophils Absolute Auto 3.6 x10*3/uL (2.0-8.3); Neutrophils Percent Auto 66.6 % (45-73); Platelet Count 186 X10*3/uL (160-400); Red Blood Count 4.45 X10*6/uL (4.20-5.50); Red Cell Distribution Width 16.2 % (11.0-16.0); White Blood Count 5.3 X10*3/uL (4.8-10.8)
[2024-01-16 14:26] LABS: Ferritin 172 ng/mL (10-122)
== END 2024-01-16 14:10 | disposition home or self-care (01) ==
LOC: HO.INF 13:30
PROVIDERS: Visit Provider Internal Medicine Medical Oncology
DX: E61.1 Iron deficiency (principal)
CPT/HCPCS: 36415; 82728; 85025; 96365; 96374; J1756

== ENCOUNTER 2024-02-08 08:06 | Outpatient (AMB) | payer OTHER, SELFPAY ==
--- NOTE | 2024-02-08 07:09 | MHC.PC.OV ---
Intake Visit Reasons: Med - Nutritional Follow up Allergies metoclopramide [From Reglan] Allergy (Intermediate, Verified 09/12/23 08:23) Anxiety [place] And Derivatives [CITRUS AND DERIVATIVES] Allergy (Unknown, Verified 09/12/23 08:23) HIVES kiwi [KIWI (ACTINIDIA CHINENSIS)] Allergy (Unknown, Verified 09/12/23 08:23) UNKNOWN orange Allergy (Unknown, Verified 09/12/23 08:23) ANAPHYLAXIS pineapple [PINEAPPLE] Allergy (Unknown, Verified 09/12/23 08:23) UNKNOWN Medication List - Last Reconciled 02/08/24 by SAMANTHA Mccabe ondansetron 4 mg PO Q8H Tobacco use date assessed: 09/12/23 Dental Screening Dental Screen Date: 09/12/23 HPI Med - Nutritional Follow up HPI Details Pt c/o weight loss. She reports weighing 118 pounds, though not a significant decline in weight noted comparing previous weights. Pt reports that she is eating. She is seeing a belting inspector who reports that she is losing weight. Will order labs. Denies fever, chills, and decreased appetite. [facility] Medical History Gallbladder polyp Diverticulosis Syncope Left ovarian cyst Iron deficiency PVCs (premature ventricular contractions) Surgical History Previous section Family History Father Substance use disorder Mother Mental health disorder Brother Brain cancer Brother Substance use disorder Son No problems noted. Maternal Grandmother Colon cancer Maternal Aunt Substance use disorder Lupus Maternal Uncle Substance use disorder Paternal Aunt Substance use disorder Paternal Uncle Substance use disorder Social History Housing: House Alcohol intake: current Alcohol intake frequency: a few times a month Patient Tobacco Use Status: Never used Tobacco e-Cigarette/Vaping Use: Never Used Second Hand Smoke Exposure: No service: No Current occupational status: employed Current occupation: [employer] Current occupational exposures/hazards: No Cognitive needs: No Hearing needs: No Vision needs: No Questionnaire Thrive Questionnaire Date Thrive assessed: 09/12/23 HEIDI-7 AMB Questionnaire HEIDI-7 Date HEIDI - 7 assessed: 09/12/23 Source: Developed by Drs. Jeovany Mukherjee, Vale Escoto, Ramin Abdalla and colleagues, with an educational maria t from [employer]. Review of Systems Const Reports as per HPI Physical exam (Primary Care) Tobacco/Smoking Status: Tobacco use Status Tobacco use date assessed 09/12/23 02/08/24 07:14 Patient Tobacco Use Status Never used Tobacco 02/08/24 07:14 e-Cigarette/Vaping Use Never Used 02/08/24 07:14 Thrive Assessment: Date of Thrive Assessment Date Thrive assessed 09/12/23 02/08/24 07:14 Const General: cooperative Orientation/consciousness: patient oriented x3 Neuro General: patient oriented x3 Psych Appearance: grossly normal Mental Status: mental status grossly normal Speech and movement: Clear speech present Affect: normal affect Attitude: cooperative Thought process: Normal thought process present Thought content: Normal thought content present Insight: Good insight present (Psych) Judgement: Good judgement present (Psych) Telehealth Telehealth Telehealth Platform: Q-go Location of provider rendering services: practice address Location of patient: address on file Patient Identification confirmed using: Name, : Yes Telehealth method: video Patient verbally consented to treatment: Yes Patient verbally consented to billing insurance company: Yes Patient informed of any privacy concerns related to visit: Yes Minutes spent on Phone/Video with Pt.: 10 Assessment and Plan Assessment & Plan (1) Weight loss: Code(s): R63.4 - Abnormal weight loss Plan: labs ordered, pt instructed to have drawn Plan The patient agreed to the use of a biomedical specialist for this encounter. Scribed for SAMANTHA Crisostomo by Luisa Senior biomedical specialist, on 02/08/2024 at 07:10 EST. Orders: Orders Cortisol Random Today R63.4 - Abnormal weight loss Complete Blood Count Auto Diff Today R63.4 - Abnormal weight loss Comprehensive Met. Panel Today R63.4 - Abnormal weight loss Erythrocyte Sedimentation Rate Today R63.4 - Abnormal weight loss TSH reflex Free T4 Today R63.4 - Abnormal weight loss HIV Ab/Ag Today R63.4 - Abnormal weight loss Hepatitis A,B,C Profile Today R63.4 - Abnormal weight loss FITS Today R63.4 - Abnormal weight loss C Reactive Protein Today R63.4 - Abnormal weight loss IRON PROFILE Today R63.4 - Abnormal weight loss Ferritin Today R63.4 - Abnormal weight loss Coding Level of Care Code Tele Est Pt Level 3 (74624) Diagnoses Weight loss R63.4
== END 2024-02-08 09:25 | disposition home or self-care (01) ==
LOC: HO.HMGC 08:06
PROVIDERS: PCP Nurse Practitioner Family; Visit Provider Nurse Practitioner Family
DX: R63.4 Abnormal weight loss (principal)
CPT/HCPCS: 99213

== ENCOUNTER 2024-02-12 08:09 | Outpatient (REF) | payer OTHER, SELFPAY ==
[2024-02-12 09:55] LABS: MANUAL DIFF FLAG NO
[2024-02-12 10:04] LABS: Basophils Percent Auto 0.9 % (0-2); Eosinophils Absolute Auto 0.1 X10*3/uL (0.0-0.4); Eosinophils Percent Auto 2.2 % (0-4); Lymphocytes Absolute Auto 1.5 X10*3/uL (1.2-4.9); Lymphocytes Percent Auto 47.4 % (20-40); Mean Corpuscular HGB Conc 32.5 g/dl (31.0-35.0); Mean Corpuscular Hemoglobin 27.5 pg (27.0-33.0); Mean Corpuscular Volume 84.7 fL (80.0-98.0); Mean Platelet Volume 11.1 fL (9.4-12.3); Monocytes Absolute Auto 0.3 X10*3/uL (0.1-1.2); Monocytes Percent Auto 8.3 % (2-11); Neutrophils Absolute Auto 1.3 x10*3/uL (2.0-8.3); Neutrophils Percent Auto 41.2 % (45-73); Platelet Count 195 X10*3/uL (160-400); Red Blood Count 4.72 X10*6/uL (4.20-5.50); Red Cell Distribution Width 16.8 % (11.0-16.0); White Blood Count 3.3 X10*3/uL (4.8-10.8)
[2024-02-12 10:27] LABS: Alanine Aminotransferase 17 U/L (0-31); Albumin Level 4.5 g/dL (3.5-5.0); Alkaline Phosphatase 50 U/L (39-117); Anion Gap 12 (12-20); Aspartate Amino Transferase 17 U/L (5-31); Bilirubin Total 0.6 mg/dL (0.0-1.0); Blood Urea Nitrogen 11 mg/dL (9-16); C Reactive Protein 0.12 mg/dL (< or = 0.50); Calcium 9.3 mg/dL (8.4-10.2); Carbon Dioxide 24 mmol/L (22-29); Chloride 108 mmol/L (96-108); Estimated Glomerular Filt Rate > 60; Glucose Random 88 mg/dL (60-115); Iron 62 mcg/dL (30-160); Percent Iron Saturation 24 % (15-50); Potassium 3.9 mmol/L (3.3-5.1); Sodium 140 mmol/L (135-145); Total Iron Binding Capacity 258 mcg/dL (228-428); Total Protein 7.6 g/dL (6.5-8.0); Unsaturated Iron Binding 196 ug/dL
[2024-02-12 10:36] LABS: HBS Num1 1.36 mIU/mL (0-7.99); HBc Num1 0.11 S/CO (0.00-0.79); HBsAGNum1 0.28 S/CO (0.00-0.99); HIV AB/AG Nonreactive (Nonreactive); HIV Num 1 0.08 S/CO (0.00-0.99); Hepatitis A Antibody IgM 0.15 Index (0-0.79); Hepatitis B Core Antibody Nonreactive (Nonreactive); Hepatitis B Surface Antigen Negative (Negative); ~HepC Num1 0.16 S/CO (0.00-0.79); ~Hepatitis A Antibody IgM Nonreactive (Nonreactive); ~Hepatitis B Surface Antibody NONREACTIVE (Nonreactive); ~Hepatitis C Antibody Nonreactive (Nonreactive)
[2024-02-12 10:38] LABS: Cortisol Random 17.2 ug/dL
[2024-02-12 10:42] LABS: Ferritin 73 ng/mL (10-122); TSH reflex Free T4 1.01 uIU/mL (0.32-4.0)
[2024-02-12 10:57] LABS: Erythrocyte Sedimentation Rate 6 MM/HR (0-20)
== END 2024-02-12 08:10 | disposition home or self-care (01) ==
LOC: HO.HMGCLDS 08:09
PROVIDERS: PCP Nurse Practitioner Family; Visit Provider Nurse Practitioner Family
DX: R63.4 Abnormal weight loss (principal)
CPT/HCPCS: 36415; 80053; 82533; 82728; 83540; 84443; 85025; 85652; 86140; 86704; 86706; 86709; 86803; 87340; 87389

== ENCOUNTER 2024-03-19 07:53 | Outpatient (AMB) | payer OTHER, SELFPAY ==
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
[2024-03-19 08:03] VITALS: BP 104/66; PULSE 78; O2SAT 98; BMI 22.0
== END 2024-03-19 08:30 | disposition home or self-care (01) ==
PROVIDERS: PCP Nurse Practitioner Family; Visit Provider Nurse Practitioner Family
DX: D72.819 Decreased white blood cell count, unspecified (principal); E61.1 Iron deficiency; Z00.00 Encounter for general adult medical examination without abnormal findings; R10.13 Epigastric pain; Z20.2 Contact with and (suspected) exposure to infections with a predominantly sexual mode of transmission

== ENCOUNTER → 2024-03-19 07:53 | Outpatient (BNVA) | payer OTHER, SELFPAY | PROVIDERS: PCP Nurse Practitioner Family; Visit Provider Nurse Practitioner Family | DX: Z00.01 Encounter for general adult medical examination with abnormal findings (principal); D72.819 Decreased white blood cell count, unspecified; E61.1 Iron deficiency; R10.13 Epigastric pain | CPT/HCPCS: 96127 ==

== ENCOUNTER 2024-03-26 08:09 | Outpatient (REF) | payer OTHER, SELFPAY ==
--- NOTE | ~2024-03-26 | US_ITS ---
EXAMINATION: US ABDOMEN COMPLETE CLINICAL INFORMATION: Epigastric pain. COMPARISON: Ultrasound kidneys and bladder 06/16/2022. Ultrasound abdomen limited 11/24/2021. CT abdomen and pelvis 07/20/2015. TECHNIQUE: Real-time imaging of the abdominal viscera. FINDINGS: PANCREAS: Normal. ABDOMINAL AORTA: The proximal, mid, and distal segments are normal in caliber. INFERIOR VENA CAVA: Visualized portions are normal. LIVER: Normal. The liver is normal in size. The liver contour is normal. Parenchymal echogenicity is normal. No focal hepatic lesion. There is no intrahepatic biliary duct dilatation seen. GALLBLADDER: A 4 mm gallbladder polyp is seen near the fundus. The gallbladder is physiologically distended without evidence of stones, sludge, wall thickening or pericholecystic fluid. COMMON BILE DUCT: Normal in caliber measuring 0.3 cm in diameter. RIGHT KIDNEY: Normal. No hydronephrosis. No renal calculi or focal parenchymal lesions. The kidney measures 10.3 cm in maximum dimension. LEFT KIDNEY: Normal. No hydronephrosis. No renal calculi or focal parenchymal lesions. The kidney measures 9.8 cm in maximum dimension. SPLEEN: Normal. The spleen measures 11.0 cm in maximum dimension. FREE FLUID: None. US/US abdomen complete IMPRESSION: 1. A cause for the patient's epigastric pain has not been found. 2. Incidental note made of a 4 mm gallbladder polyp. Electronically signed by: Fahad Mendez MD 05/06/2024 12:32 AM EST
[2024-03-26 10:13] LABS: MANUAL DIFF FLAG NO
[2024-03-26 10:17] LABS: Basophils Percent Auto 0.6 % (0-2); Eosinophils Absolute Auto 0.1 X10*3/uL (0.0-0.4); Eosinophils Percent Auto 2.8 % (0-4); Hematocrit 39.5 % (37.0-47.0); Hemoglobin 13.1 g/dl (12.0-16.0); Imm Gran Abs Auto 0.01 X10*3/uL (0.00-0.03); Imm Gran Pct Auto 0.3 % (0.0-0.4); Lymphocytes Absolute Auto 1.6 X10*3/uL (1.2-4.9); Lymphocytes Percent Auto 43.2 % (20-40); Mean Corpuscular HGB Conc 33.2 g/dl (31.0-35.0); Mean Corpuscular Volume 87.6 fL (80.0-98.0); Mean Platelet Volume 11.3 fL (9.4-12.3); Monocytes Absolute Auto 0.4 X10*3/uL (0.1-1.2); Neutrophils Absolute Auto 1.6 x10*3/uL (2.0-8.3); Neutrophils Percent Auto 43.1 % (45-73); Platelet Count 179 X10*3/uL (160-400); Red Blood Count 4.51 X10*6/uL (4.20-5.50); Red Cell Distribution Width 13.5 % (11.0-16.0); White Blood Count 3.6 X10*3/uL (4.8-10.8)
[2024-03-26 10:18] LABS: Appearance Urine Clear; Color Urine Yellow; Glucose Urine UA Negative (Negative); Leukocyte Esterase Urine Negative (Negative); Nitrite Urine Negative (Negative); Urine Blood Negative (Negative); Urine Ketones Negative (Negative); Urine Protein Negative (Neg-Trace)
[2024-03-26 10:58] LABS: Syphilis Screen Nonreactive (Nonreactive)
[2024-03-26 11:04] LABS: HBS Num1 1.56 mIU/mL (0-7.99); HBc Num1 0.16 S/CO (0.00-0.79); HBsAGNum1 0.33 S/CO (0.00-0.99); HIV AB/AG Nonreactive (Nonreactive); HIV Num 1 0.07 S/CO (0.00-0.99); Hepatitis A Antibody IgM 0.13 Index (0-0.79); Hepatitis B Core Antibody Nonreactive (Nonreactive); Hepatitis B Surface Antigen Negative (Negative); ~HepC Num1 0.14 S/CO (0.00-0.79); ~Hepatitis A Antibody IgM Nonreactive (Nonreactive); ~Hepatitis B Surface Antibody NONREACTIVE (Nonreactive); ~Hepatitis C Antibody Nonreactive (Nonreactive)
[2024-03-26 11:06] LABS: Alanine Aminotransferase 17 U/L (0-31); Albumin Level 4.4 g/dL (3.5-5.0); Alkaline Phosphatase 48 U/L (39-117); Anion Gap 8 (12-20); Aspartate Amino Transferase 15 U/L (5-31); Bilirubin Total 0.6 mg/dL (0.0-1.0); Blood Urea Nitrogen 13 mg/dL (9-16); Carbon Dioxide 24 mmol/L (22-29); Chloride 111 mmol/L (96-108); Cholesterol 143 mg/dL (<200); Estimated Glomerular Filt Rate > 60; Ferritin 42 ng/mL (10-122); Glucose Fasting 88 mg/dL (60-99); HDL Cholesterol 48 mg/dL (>40); Iron 54 mcg/dL (30-160); LDL Cholesterol Calculated 86 mg/dL (<100); Lipase 42 U/L (8-78); Percent Iron Saturation 19 % (15-50); Sodium 139 mmol/L (135-145); TSH reflex Free T4 0.85 uIU/mL (0.32-4.0); Total Iron Binding Capacity 277 mcg/dL (228-428); Total Protein 7.3 g/dL (6.5-8.0); Triglycerides 47 mg/dL (<150); Unsaturated Iron Binding 223 ug/dL
[2024-03-26 11:13] LABS: Folate 8.5 ng/mL (> or = 4.0); Vitamin B12 301 pg/mL (200-900)
[2024-03-26 13:57] LABS: CT PCR NOT DETECTED (Not Detect.); NG PCR NOT DETECTED (Not Detect.)
[2024-03-29 23:43] LABS: Smooth Muscle Antibody <20 U (<20)
[2024-04-01 10:39] LABS: Mitochondrial Antibodies NEGATIVE (NEGATIVE)
== END 2024-03-26 08:10 | disposition home or self-care (01) ==
LOC: HO.HMGCX 08:09
PROVIDERS: PCP Nurse Practitioner Family; Visit Provider Nurse Practitioner Family
DX: R10.13 Epigastric pain (principal); E61.1 Iron deficiency; Z20.2 Contact with and (suspected) exposure to infections with a predominantly sexual mode of transmission; Z11.4 Encounter for screening for human immunodeficiency virus [HIV]; Z13.6 Encounter for screening for cardiovascular disorders; Z00.00 Encounter for general adult medical examination without abnormal findings
CPT/HCPCS: 76700; 80053; 80061; 81003; 82607; 82728; 82746; 83540; 83690; 84443; 85025; 86015; 86381; 86704; 86706; 86709; 86780; 86803; 87340; 87389; 87491; 87591

== ENCOUNTER 2024-09-17 08:22 | Outpatient (AMB) | payer OTHER, SELFPAY ==
--- NOTE | 2024-09-17 08:26 | A.OFFPC_ITS ---
Vital Signs 09/17/24 08:27 Height 5 ft 3 in Weight 124 lb BMI 22.0 BP 110/68 Blood Pressure Location Lt brachial Position Sitting Pulse 53 Pulse Source Pulse Oximeter Temp 98.1 F Temp Source Oral Pulse Oximetry (%) 98 Oxygen Delivery Method Room Air Intake Visit Reasons: 6 month follow up Intake Note: pt is here for 6 mon f.up, patient is requesting labs to check iron levels Edge Grinder Required: No Accompanied by: Self / Same As Patient Allergies metoclopramide [From Reglan] Allergy (Intermediate, Verified 09/17/24 08:28) Anxiety Walker And Derivatives [CITRUS AND DERIVATIVES] Allergy (Unknown, Verified 09/17/24 08:28) HIVES kiwi [KIWI (ACTINIDIA CHINENSIS)] Allergy (Unknown, Verified 09/17/24 08:28) UNKNOWN orange Allergy (Unknown, Verified 09/17/24 08:28) ANAPHYLAXIS pineapple [PINEAPPLE] Allergy (Unknown, Verified 09/17/24 08:28) UNKNOWN Tobacco use date assessed: 09/17/24 Dental Screening Dental Screen Date: 09/17/24 Did you have a dental visit in the last 12 months?: Yes Did you have a dental problem in the last 6 months where you did not have access to dental care?: No Was dental information given to patient?: Patient has dentist HPI 6 month follow up HPI Details Chief Complaint Generalized follow-up without active complaints History of Present Illness The patient is a 34-year-old female presenting for a generalized follow-up. She has a history of iron deficiency anemia and leukopenia. The patient reports no active symptoms such as fatigue, blurred vision, chest pain, shortness of breath, or dizziness. Her medical history includes consultations with oncology for her hematological conditions. Despite these health concerns, she describes her lifestyle as very active, participating in extensive jogging and running activities. Social History - Exercise: Engages in extensive physica l activity, including jogging and running. Health Maintenance - CBC and iron studies to be obtained. - B12 levels will be assessed. Review of Systems - General: Denies fatigue. - Cardiovascular: Denies chest pain, michel rtness of breath. - Neurological: Denies dizziness, blurre d vision. Physical Exam General: Cooperative, healthy appearing, comfortable, no acute distress and well developed Orientation: Patient oriented x3 Limitations: No limitations Head: Normal to inspection Ears: Hearing grossly normal bilaterally Nose: Normal external nose present Face and sinus: Normal facial exam Eyes: Appearance normal, both eyes and all related structures Neck: Normal visual inspection and Yes full ROM Respiratory: Normal respiratory effort and able to speak in complete sentences. Clear to auscultation bilaterally Cardiovascular: Bradycardic, strong S1 and S2 GI: Normal to inspection. Soft to palpation and nontender Skin: No rashes or lesions noted Neuro: Patient oriented x3 Extremities: Normal to inspection, no edema Results Plan I plan to obtain a complete blood count CBC), iron studies, and levels to m onitor her hematological conditions of iron deficiency anemia and leukopenia. Her current bradycardia is noted, but without present symptoms, ongoing monitoring is sufficient for now, particularly due to her athletic lifestyle. There is no immediate need for referral to oncology unless lab results show significant deviations. Discussion Notes I discussed with the patient the plan to obtain a CBC, iron studies, and B12 levels to monitor her known conditions of iron deficiency anemia and leukopenia. I informed her of the current findings of bradycardia and reassured her that, in the absence of symptoms, it is manageable with her current activity level. We agreed that follow-up on lab results is necessary, and consultation with oncology would only be revisited if abnormal findings arise. Patient Instructions - Continue regular physical activity as tolerated. - Monitor for any new symptoms such as f atigue or dizziness and report them promptly. - Await results of labs including CBC, i aryan, and B12 levels. - Return for follow-up to discuss lab re sults and any necessary adjustments in management. [facility] Medical History Gallbladder polyp Diverticulosis Syncope Left ovarian cyst Iron deficiency PVCs (premature ventricular contractions) Surgical History Previous section Family History Father Substance use disorder Mother Mental health disorder Brother Brain cancer Brother Substance use disorder Son No problems noted. Maternal Grandmother Colon cancer Maternal Aunt Substance use disorder Lupus Maternal Uncle Substance use disorder Paternal Aunt Substance use disorder Paternal Uncle Substance use disorder Social History Housing: House Alcohol intake: current Alcohol intake frequency: a few times a month Patient Tobacco Use Status: Never used Tobacco e-Cigarette/Vaping Use: Never Used Second Hand Smoke Exposure: No service: No Current occupational status: employed Current occupation: [employer], [employer] Current occupational exposures/hazards: No Cognitive needs: No Hearing needs: No Vision needs: No Questionnaire PHQ-9 Over the last 2 weeks, how often have you been bothered by any of the following problems? 1. Little interest or pleasure in doing things: several days 2. Feeling down, depressed, or hopeless: several days 3. Trouble falling or staying asleep, or sleeping too much: several days 4. Feeling tired or having little energy: several days 5. Poor appetite or overeating: several days 6. Feeling bad about yourself - or that you are a failure or have let yourself or your family down: several days 7. Trouble concentrating on things, such as reading the newspaper or watching television: several days 8. Moving or speaking so slowly that other people could have noticed. Or the opposite - being so fidgety or restless that you have been moving around a lot more than usual: not at all 9. Thoughts that you would be better off or of hurting yourself in some way: not at all Total score: 7 Depression Screening Interpretation: Negative Depression Screening Done: Yes 81942 - PHQ-9 Billing: Yes Source: Developed by Drs. Jeovany Mukherjee, Vale Escoto, Ramin Abdalla and colleagues, with an educational maria t from [employer]. Thrive Questionnaire Date Thrive assessed: 09/17/24 I am a: Patient What is your living situation today?: I have a steady place to live Within the past 12 months, did the food you bought not last and you didn't have the money to get more?: Never true Within the past 12 months, did you worry whether your food would run out before you got money to buy more?: Never true Do you have trouble paying for medicines?: No Do you have trouble getting transportation to medical appointments?: No Do you have trouble paying your heating and electricity bill?: No Do you have trouble taking care of your child, family member or friend?: No Do you have trouble with day-to-day activities such as bathing, preparing meals, shopping, managing finances, etc.?: No Are you currently unemployed and looking for a job?: No Are you interested in more education?: No Please select the resources that you would like help with: None Currently or been in a relationship where the following occur: No concerns reported THRIVE Score: 0 AUDIT C Alcohol Use Questionnaire (AUDIT-C) 1. How often do you have a drink containing alcohol?: Never 3. How often do you have six or more drinks on one occasion?: Never Total Score: 0 Score Reviewed/Action Taken: Yes HEIDI-7 AMB Questionnaire HEIDI-7 Date HEIDI - 7 assessed: 09/17/24 Feeling nervous, anxious, or on edge: 2 = More than half the days Not being able to stop or control worryin = More than half the days Worrying too much about different things: 2 = More than half the days Trouble relaxin = More than half the days Being so restless that it is hard to sit still: 2 = More than half the days Becoming easily annoyed or irritable: 2 = More than half the days Feeling afraid as if something awful might happen: 2 = More than half the days Total HEIDI-7 score (0-4 normal; 5-9 mild; 10-14 moderate; 15-21 severe): 14 Source: Developed by Drs. Jeovany Mukherjee, Vale Escoto, Ramin Abdalla and colleagues, with an educational maria t from [employer]. HEIDI-7 Assessment Billing HEIDI-7 Assessment Tool: HEIDI-7 Assessment 51218 (has a therapist, sees once a week) Physical exam (Primary Care) Vital Signs: Last Vital Signs Temp 98.1 F 09/17/24 08:27 Pulse 53 09/17/24 08:27 BP 110/68 09/17/24 08:27 Pulse Ox 98 09/17/24 08:27 Oxygen Delivery Method Room Air 09/17/24 08:27 BMI result Body Mass Index 22.0 Tobacco/Smoking Status: Tobacco use Status Tobacco use date assessed 09/17/24 09/17/24 08:34 Patient Tobacco Use Status Never used Tobacco 09/17/24 08:29 e-Cigarette/Vaping Use Never Used 09/17/24 08:29 PHQ-9: PHQ-9 Score PHQ-9: Total score 7 09/17/24 08:34 Depression Screening Interpretation: Negative Thrive Assessment: Date of Thrive Assessment Date Thrive assessed 09/17/24 09/17/24 08:34 Currently or been in a relationship where the following occur: No concerns reported Coding Level of Care Code Est Pt Level 3 (65311) Diagnoses Iron deficiency E61.1 Anemia D64.9 Additional Codes PHQ-9 - 64725 - PHQ-9 Billing: Yes ([id number]) HEIDI-7 Assessment Billing - HEIDI-7 Assessment Tool: HEIDI-7 Assessment 40589 ([id number]) Assessment & Plan Assessment & Plan (1) Iron deficiency: Code(s): E61.1 - Iron deficiency Category: Medical (2) Anemia: Code(s): D64.9 - Anemia, unspecified Category: Medical Plan . Orders: Orders Comprehensive [place]. Panel Fast Today D64.9 - Anemia, unspecified, E61.1 - Iron deficiency TSH reflex Free T4 Today D64.9 - Anemia, unspecified, E61.1 - Iron deficiency UA CC w/rflx Micro + Cult Today D64.9 - Anemia, unspecified, E61.1 - Iron deficiency IRON PROFILE Today D64.9 - Anemia, unspecified, E61.1 - Iron deficiency Ferritin Today D64.9 - Anemia, unspecified, E61.1 - Iron deficiency Complete Blood Count Auto Diff Today D64.9 - Anemia, unspecified, E61.1 - Iron deficiency Vitamin B12 and Folate Today D64.9 - Anemia, unspecified, E61.1 - Iron deficiency
[2024-09-17 08:27] VITALS: BP 110/68; PULSE 53; TEMP 36.7; O2SAT 98; BMI 22.0
--- OUTSIDE RECORDS SUMMARY | 2024-09-17 08:32 | XMS_ITS | Encounter Summary ---
Author Organization [facility] Address [address] [place] [address] Phone Care Team Providers Care Manometer Technician Name Role Phone Ramin Mclean MD Primary Care Provider [phone] Encounter Details Date Type Department Care Team (Late st Contact Info) Description 12/07/2009 Documentation [facility] [place] Family Medicine [address] [place] [address] Family Medicine, Physician [address] [place] [address] Social History Tobacco Use Types Packs/Day Years Used Date Smoking Tobacco: Never Assessed Comments Unknown Sex and Gender Information Value Date Recorded Sex Assigned at Not on file Legal Sex Female 4:51 PM EDT Gender Identity Not on file Sexual Orientation Not on file documented as of this encounter Plan of Treatment Not on file documented as of this encounter Visit Diagnoses Not on filedocumented in this encounter Care Teams Manometer Technician Relationship Specialty Start Date End Date Ramin Mclean MD [address] [place] [address] [place] [address] PCP - General 02/10/17 10/13/22 documented as of this encounter
--- OUTSIDE RECORDS SUMMARY | 2024-09-17 08:32 | XMS_ITS | Patient Health Record ---
Author Organization [facility] Address [address] [place] [address] Support Name Relationship Address Phone MORIAH NUNEZ Guarantor Unknown Reason For Referral No Information Problems Problem Type SNOMED Code ICD Code Onset Dates Problem Status W/U Status Risk Notes Problem Primigravida ([id number]) Supervision of normal first (V22.0) Active confirmed Diag Plan Of Treatment No Information Insurance Providers Payer Name Payer Address Payer Phone Subscriber Number Group Number Insured Name Patient Relationship to Insured Coverage Start Date Coverage End Date [employer] [address] [place], [place] [id number] [phone] [id number] MORIAH NUNEZ Self - patient is the insured
--- OUTSIDE RECORDS SUMMARY | 2024-09-17 08:32 | XMS_ITS | Encounter Summary ---
Author Organization [facility] Address [address] [place] [address] Phone Care Team Providers Care Professor Of Poultry Science Name Role Phone Ramin Mclean MD Primary Care Provider [phone] Encounter Details Date Type Department Care Team (Late st Contact Info) Description 02/16/2017 Conversion Encounter [facility] [place] [address] [place] [address] Social History Tobacco Use Types Packs/Day Years Used Date Smoking Tobacco: Never Comments:Never smoker Comments Unknown Sex and Gender Information Value Date Recorded Sex Assigned at Not on file Legal Sex Female 4:51 PM EDT Gender Identity Not on file Sexual Orientation Not on file documented as of this encounter Plan of Treatment Not on file documented as of this encounter Visit Diagnoses Not on filedocumented in this encounter Care Teams Professor Of Poultry Science Relationship Specialty Start Date End Date Ramin Mclean MD [address] [place] [address] PCP - General 02/10/17 10/13/22 documented as of this encounter
--- OUTSIDE RECORDS SUMMARY | 2024-09-17 08:32 | XMS_ITS | Encounter Summary ---
Author Organization [facility] Address [address] [place] [address] Phone Care Team Providers Care Retort Or Condenser Press Operator Name Role Phone Ramin Mclean MD Primary Care Provider [phone] Encounter Details Date Type Department Care Team (Late st Contact Info) Description 10/04/2012 Documentation [facility] [place] Family Medicine [address] [place] [address] Family Medicine, Physician [address] [place] [address] Social History Tobacco Use Types Packs/Day Years [...] on filedocumented in this encounter Care Teams Retort Or Condenser Press Operator Relationship Specialty Start Date End Date Ramin Mclean MD [address] [place] [address] [place] [address] PCP - General 02/10/17 10/13/22 documented as of this encounter
--- OUTSIDE RECORDS SUMMARY | 2024-09-17 08:32 | XMS_ITS | Encounter Summary ---
Author Organization [facility] Address [address] [place] [address] Phone Care Team Providers Care Phosphoric Acid Operator Name Role Phone Ramin Mclean MD Primary Care Provider [phone] Encounter Details Date Type Department Care Team (Late st Contact Info) Description 12/09/2013 Conversion Encounter [facility] [address] [place] [address] Ramin Mclean MD [address] [place] [address] Social History Tobacco Use Types Packs/Day Years [...] on filedocumented in this encounter Care Teams Phosphoric Acid Operator Relationship Specialty Start Date End Date Ramin Mclean MD [address] [place] [address] PCP - General 02/10/17 10/13/22 documented as of this encounter
--- OUTSIDE RECORDS SUMMARY | 2024-09-17 08:32 | XMS_ITS | Encounter Summary ---
Author Organization [facility] Address [address] [place] [address] Phone Care Team Providers Care Meat Cutting Block Repairer Name Role Phone Ramin Mclean MD Primary Care Provider Encounter Details Date Type Department Care Team (Late st Contact Info) Description 12/07/2009 Documentation [facility] Family Medicine [address] [place] [address] Family Medicine, Physician [address] [place] [address] Social History Tobacco Use Types Packs/Day Years [...] on filedocumented in this encounter Care Teams Meat Cutting Block Repairer Relationship Specialty Start Date End Date Ramin Mclean MD [address] [place] [address] [place] [address] PCP - General 02/10/17 10/13/22 documented as of this encounter
--- OUTSIDE RECORDS SUMMARY | 2024-09-17 08:32 | XMS_ITS | Encounter Summary ---
Author Organization [facility] Address [address] [place] [address] Phone Care Team Providers Care Electronic Imager Name Role Phone Ramin Mclean MD Primary Care Provider [phone] Encounter Details Date Type Department Care Team (Late st Contact Info) Description 12/21/2012 Documentation [facility] [place] [address] [place] [address] Family Medicine, Physician [address] [place] [address] Social History Tobacco Use Types Packs/Day Years [...] on filedocumented in this encounter Care Teams Electronic Imager Relationship Specialty Start Date End Date Ramin Mclean MD [address] [place] [address] [place] [address] PCP - General 02/10/17 10/13/22 documented as of this encounter
--- OUTSIDE RECORDS SUMMARY | 2024-09-17 08:32 | XMS_ITS | Clinical Summary ---
Author Organization [facility] Address [address] [place] [phone] Care Team Providers Care Development Technologist Name Role Phone AustinsandraWhit Pulido DO Primary Care Pro vider Social History Tobacco Use Types Packs/Day Years Used Date Smoking Tobacco: Never Assessed Comments Unknown Sex and Gender Information Value Date Recorded Sex Assigned at Not on file Legal Sex Female 1:59 AM EST Gender Identity Not on file Sexual Orientation Not on file Plan of Treatment Health Maintenance Due Date Last Done Comments Cervical Cancer Screening: Pap Smear 2013 DTaP,Tdap,and Td Vaccines (8 - Td or Tdap) 05/05/2018 05/05/2008, 03/15/2004, 02/27/1998, Additional history exists COVID-19 Vaccine ( season) 2024 Influenza Vaccine (#1) 2024 Hepatitis B Vaccines Completed 02/08/1993, 1992, 1992 HIB Vaccines Completed 09/07/1993, 10/1992, 1992, Additional history exists MMR Vaccines Completed 02/27/1997, 09/07/1993 IPV Vaccines Completed 02/27/1998, 07/1993, 09/07/1993, Additional history exists Meningococcal ACWY Vaccine Aged Out 04/03/2007 N o longer eligible based on patient's age to complete this topic HPV Vaccines Completed 05/05/2008, 12/01, 04/03/2007 Hepatitis A Vaccines Aged Out No long er eligible based on patient's age to complete this topic Meningococcal B Vacine Aged Out No lo nger eligible based on patient's age to complete this topic Pneumococcal Vaccine: Pediatrics (0 to 5 Years) and At-Risk Patients (6 to 64 Years) Aged Out No longer eligible based on patient's age to complete this topic RSV Immunization Patients Under 20 months Aged Out No longer eligible based on patient's age to complete this topic Varicella Vaccines Aged Out No longer eligible based on patient's age to complete this topic Care Teams Development Technologist Relationship Specialty Start Date End Date Whit Mccrary DO PCP - General Internal Medicine 10/08/13
--- OUTSIDE RECORDS SUMMARY | 2024-09-17 08:32 | XMS_ITS | Encounter Summary ---
Author Organization [facility] Address [address] [place] [address] Phone Care Team Providers Care Search Engine Optimization Manager Name Role Phone Ramin Mclean MD Primary Care Provider [phone] Encounter Details Date Type Department Care Team (Late st Contact Info) Description 07/24/2010 Documentation [facility] [place] [address] [place] [address] Family Medicine, Physician [address] [place] [address] Social History Tobacco Use Types Packs/Day Years [...] on filedocumented in this encounter Care Teams Search Engine Optimization Manager Relationship Specialty Start Date End Date Ramin Mclean MD [address] [place] [address] [place] [address] PCP - General 02/10/17 10/13/22 documented as of this encounter
--- OUTSIDE RECORDS SUMMARY | 2024-09-17 08:32 | XMS_ITS | Encounter Summary ---
Author Organization [facility] Address [address] [place] [address] Phone Care Team Providers Care Comb Machine Operator Name Role Phone Ramin Mclean MD Primary Care Provider [phone] Encounter Details Date Type Department Care Team (Late st Contact Info) Description 12/21/2012 Documentation [facility] [place] [address] [place] [address] Family Medicine, Physician [address] [place] [address] Social History Tobacco Use Types Packs/Day Years [...] on filedocumented in this encounter Care Teams Comb Machine Operator Relationship Specialty Start Date End Date Ramin Mclean MD [address] [place] [address] [place] [address] PCP - General 02/10/17 10/13/22 documented as of this encounter
--- OUTSIDE RECORDS SUMMARY | 2024-09-17 08:33 | XMS_ITS | Encounter Summary ---
Author Organization [facility] Address [address] [place] [address] Phone Care Team Providers Care Kelly Machine Operator Name Role Phone Ramin Mclean MD Primary Care Provider Encounter Details Date Type Department Care Team (Late st Contact Info) Description 12/29/2011 Documentation [facility] [place] [address] [place] [address] Family Medicine, Physician [address] [place] [address] Social History Tobacco Use Types Packs/Day Years [...] on filedocumented in this encounter Care Teams Kelly Machine Operator Relationship Specialty Start Date End Date Ramin Mclean MD [address] [place] [address] [place] [address] PCP - General 02/10/17 10/13/22 documented as of this encounter
--- OUTSIDE RECORDS SUMMARY | 2024-09-17 08:33 | XMS_ITS | Encounter Summary ---
Author Organization [facility] Address [address] [place] [address] Phone Care Team Providers Care Official Greeter Name Role Phone Ramin Mclean MD Primary Care Provider [phone] Encounter Details Date Type Department Care Team (Late st Contact Info) Description 03/07/2013 Documentation [facility] [place] Family Medicine [address] [place] [address] Family Medicine, Physician [address] [place] [address] Social History Tobacco Use Types Packs/Day Years [...] on filedocumented in this encounter Care Teams Official Greeter Relationship Specialty Start Date End Date Ramin Mclean MD [address] [place] [address] [place] [address] PCP - General 02/10/17 10/13/22 documented as of this encounter
--- OUTSIDE RECORDS SUMMARY | 2024-09-17 08:33 | XMS_ITS | Encounter Summary ---
Author Organization [facility] Address [address] [place] [address] Phone Care Team Providers Care Time Buyer Name Role Phone Ramin Mclean MD Primary Care Provider [phone] Encounter Details Date Type Department Care Team (Late st Contact Info) Description 03/05/2013 Documentation [facility] [place] [address] [place] [address] Family Medicine, Physician [address] [place] [address] Social History Tobacco Use Types Packs/Day Years [...] on filedocumented in this encounter Care Teams Time Buyer Relationship Specialty Start Date End Date Raimn Mclean MD [address] [place] [address] [place] [address] PCP - General 02/10/17 10/13/22 documented as of this encounter
--- OUTSIDE RECORDS SUMMARY | 2024-09-17 08:33 | XMS_ITS | Clinical Summary ---
Author Organization [facility] Address [address] [place] [phone] Phone Care Team Providers Care Inside Sales Account Representative Name Role Phone Unavailable Primary Care Provider Unavailabl e Immunizations Immunization Administration Dates Next Due DTP 02/27/1998, 4,1992,08/17,1992 HPV, Quadrivalent 05/05/2008,12/17/2007,04/03/20 07 Hep B, ped/adol 02/08/1993,1992,1992 Hib (PRP-T) 09/07/1993, 3,1992,06/08 MMR 02/27/1997,09/07/1993 Meningococcal Conj (Menactra) MCV4P 04/03/2007 OPV 02/27/1998, 4,1992,06/08 Td (adult) (MBL), 2 Lf tetan us toxoid, PF, adsorbed 03/15/2004 Tdap 05/05/2008 Family History Relation Name Status Comments Brother 1 Alive Brother: Alive and well, Alive and well Brother 2 Alive Brother: Alive and well, Alive and well Father Alive Father: Alive a nd well Mother Alive Mother: Alive a nd well Social History Tobacco Use Types Packs/Day Years Used Date Smoking Tobacco: Never Comments:Never smoker Comments Unknown Sex and Gender Information Value Date Recorded Sex Assigned at Not on file Legal Sex Female 4:51 PM EDT Gender Identity Not on file Sexual Orientation Not on file Last Filed Vital Signs Vital Sign Reading Time Taken Comments Blood Pressure 107/66 05/21/2013 12:00 AM EST Pulse 78 03/05/2013 12:00 AM EDT Temperature 36 ??C (96.8 ??F) 05/21/2013 12:00 AM EST Respiratory Rate - - Oxygen Saturation - - Inhaled Oxygen Concentration - - Weight 56.2 kg (124 lb) 05/21/2013 12:00 AM EST Height 160.5 cm (5' 3.2 ) 05/21/2013 12:00 AM ES T Body Mass Index 21.83 05/21/2013 12:00 AM EST Plan of Treatment Health Maintenance Due Date Last Done Comments Varicella Vaccines (1 of 2 - 13+ 2-dose series) 2005 DTaP,Tdap,and Td Vaccines (7 - Td or Tdap) 05/05/2018 05/05/2008, 03/15/2004, 02/27/1998, Additional history exists Influenza Vaccines (#1) 2024 COVID-19 Vaccine ( season) 2024 Hepatitis B Vaccines Completed 02/08/1993, 1992, 1992 HIB Vaccines Completed 09/07/1993, 10/1992, 1992, Additional history exists MMR Vaccines Completed 02/27/1997, 09/07/1993 IPV Vaccines Completed 02/27/1998, 07/1993, 1992, Additional history exists Meningococcal Vaccine Aged Out 04/03/2007 No flakito shanon eligible based on patient's age to complete this topic HPV Vaccines Completed 05/05/2008, 12/01, 04/03/2007 Hepatitis A Vaccines Aged Out No long er eligible based on patient's age to complete this topic Men B Vaccine Aged Out No longer elig ible based on patient's age to complete this topic Pneumococcal Vaccine Aged Out No long er eligible based on patient's age to complete this topic Procedures * Due to [place] Glance App law, this organization might not be sharing sensitive test results. Procedure Name Priority Date/Time Associated Diagnosis Comments CHLAMYDIA AND GONORRHEA, AMPLIFIED Routine 03/04/2011 1:17 PM EDT from Last 3 Months or Most Recently Relevant to Health Maintenance Results * Due to [place] state law, this organization might not be sharing sensitive test results. * Chlamydia and Gonorrhoea, Amplified (03/04/2011 1:17 PM EDT) URINE CHLAMYDIA AMP PROBE NEGATIVE [facility] Comment: NO CHLAMYDIA TRACHOMATIS RNA DETECTED IN THIS PATIENT'S SAMPLE. ? (REFERENCE RANGE/NORMAL VALUE: NOT DETECTED) URINE GC AMP PROBE NEGATIVE [facility] Comment: NO NEISSERIA GONORRHOEAE RNA DETECTED IN THIS PATIENT'S SAMPLE. ? (REFERENCE RANGE/NORMAL VALUE: NOT DETECTED) ? NOTE: THIS TEST USES FUEL EFFICIENT AIRCRAFT DESIGNER MEDIATED AMPLIFICATION METHOD TO DETECT rRNA FROM C.TRACHOMATIS AND N.GONORRHOEAE. A NEGATIVE RESULT DOES NOT PRECLUDE INFECTION WITH C.TRACHOMATIS OR N.GONORRHOEAE BECAUSE RESULTS ARE DEPENDENT ON ADEQUATE SPECIMEN COLLECTION, ABSENCE OF INHIBITORS, AND SUFFICIENT rRNA TO BE DETECTED. THE APTIMA COMBO2 ASSAY IS NOT INTENDED FOR THE EVALUATION OF SUSPECTED SEXUAL ABUSE OR FOR OTHER MEDICO LEGAL INDICATIONS. IS TRUE FOR ALL NON CULTURE METHODS, A POSITIVE SPECIMEN OBTAINED FROM A PATIENT AFTER THERAPEUTIC TREATMENT CANNOT BE INTERPRETED INDICATING THE PRESENCE OF VIABLE C.TRACHOMATIS OR N.GONORRHOEAE. THERAPEUTIC FAILURE OR SUCCESS CANNOT BE DETERMINED WITH THE APTIMA COMBO2 ASSAY SINCE NUCLEIC ACID MAY PERSIST FOLLOWING APPROPRIATE ANTIMICROBIAL THERAPY. A NEGATIVE URINE RESULT FOR A PATIENT WHO IS CLINICALLY SUSPECTED OF HAVING A CHLAMYDIAL OR GONOCOCCAL INFECTION DOES NOT RULE OUT THE PRESENCE OF C.TRACHOMATIS OR N.GONORRHOEAE IN THE UROGENITAL TRACT. TESTING OF AN ENDOCERVICAL(FEMALE) OR URETHRAL(MALE) SPECIMEN IS RECOMMENDED IF THERE IS HIGH CLINICAL SUSPICION OF INFECTION. PRESERVCYT LIQUID PAP AND URINE SAMPLING ARE NOT DESIGNED TO REPLACE CERVICAL EXAMS AND ENDOCERVICAL SAMPLES FOR DIAGNOSIS OF FEMALE UROGENITAL INFECTIONS. PATIENTS MAY HAVE CERVICITIS, URETHRITIS, URINARY TRACT INFECTIONS, OR VAGINAL INFECTIONS DUE TO OTHER CAUSES OR CONCURRENT INFECTIONS WITH OTHER AGENTS. 03/04/2011 1:17 PM EDT Narrative [facility] - 03/04/2011 1:17 PM EDT URINE CHLAMYDIA GC AMP PROBE Kary Higuera NP LAB MICROBIOLOGY - GENERA L ORDERABLES Final Result [facility] [address] [place] [address], [place] from Last 3 Months or Most Recently Relevant to Health Maintenance
== END 2024-09-17 09:02 | disposition home or self-care (01) ==
LOC: HO.HMCC 08:23
PROVIDERS: PCP Nurse Practitioner Family; Visit Provider Nurse Practitioner Family
DX: E61.1 Iron deficiency (principal); D64.9 Anemia, unspecified

== ENCOUNTER → 2024-09-17 08:22 | Outpatient (BNVA) | payer OTHER, SELFPAY | PROVIDERS: PCP Nurse Practitioner Family; Visit Provider Nurse Practitioner Family | DX: E61.1 Iron deficiency (principal); D64.9 Anemia, unspecified | CPT/HCPCS: 96127 ==

== ENCOUNTER 2025-04-01 08:40 | Outpatient (AMB) | payer OTHER, SELFPAY ==
--- NOTE | 2025-04-01 08:44 | A.OFFPC_ITS ---
Vital Signs 04/01/25 08:45 Height 5 ft 3 in Weight 123 lb BMI 21.8 BP 110/80 Blood Pressure Location Lt brachial Position Sitting Pulse 67 Temp 98.7 F Intake Visit Reasons: PE Farm Owner Operator Required: No Accompanied by: Self / Same As Patient Allergies metoclopramide (From Reglan) Allergy (Intermediate, Verified 04/01/25 09:10) Anxiety [facility] And Derivatives (CITRUS AND DERIVATIVES) Allergy (Unknown, Verified 04/01/25 09:10) HIVES kiwi (KIWI (ACTINIDIA CHINENSIS)) Allergy (Unknown, Verified 04/01/25 09:10) UNKNOWN orange Allergy (Unknown, Verified 04/01/25 09:10) ANAPHYLAXIS pineapple (PINEAPPLE) Allergy (Unknown, Verified 04/01/25 09:10) UNKNOWN Medication List - Last Reconciled 04/01/25 by HUGO Mccabe- hydroxyzine HCl 25 mg PO BID PRN 20 days ondansetron 4 mg PO Q8H Tobacco use date assessed: 09/17/24 Dental Screening Dental Screen Date: 04/01/25 Did you have a dental visit in the last 12 months?: Yes Did you have a dental problem in the last 6 months where you did not have access to dental care?: No Was dental information given to patient?: Patient has dentist HPI PE HPI Details History of Present Illness The patient is a 34-year-old female presenting with a request for a physical exa mination and preventative care. She has a history of low ferritin and iron levels, which have been monitored over time. The patient is physically active, participating in marathons and running races across the country, which may contribute to her iron deficiency. Additionally, she has requested a cortisol level check due to frequent breakouts, indicating a concern for potential hormonal imbalances. Hx of gallbladder polyp, will recheck with [facility] Maintenance - Preventative care: Request for cortiso l level due to frequent breakouts Social History - Exercise: Very physically active, part icipates in marathons and running races across the country Review of Systems - General: Denies fevers, chills - Gastrointestinal: Denies abdominal lety n, constipation, diarrhea - Neurological: Denies blurred vision - Psychiatric: Denies suicidal ideation, homicidal ideation Physical Exam General: Cooperative, healthy appearing, comfortable, no acute distress and well developed Orientation: Patient oriented x3 Limitations: No limitations Head: Normal to inspection Ears: Hearing grossly normal bilaterally Nose: Normal external nose present Face and sinus: Normal facial exam Eyes: Appearance normal, both eyes and all related structures Neck: Normal visual inspection and Yes full ROM Respiratory: Normal respiratory effort and able to speak in complete sentences. Clear to auscultation bilaterally Cardiovascular: Regular rate and rhythm. Normal S1 and S2 GI: Normal to inspection. Soft to palpation and nontender Skin: acne to upper back (small) Neuro: Patient oriented x3 Extremities: Normal to inspection Results Plan 1. Low Ferritin And Iron Levels The patient will continue to have her ferritin and iron levels monitored due to a history of low levels. 2. Request For Cortisol Level Due To [place] quent Breakouts A cortisol level test has been requested by the patient to investigate frequent breakouts, which may suggest hormonal imbalances. 3. PE labs ordered last year Discussion Notes I discussed with the patient the importance of monitoring her ferritin and iron levels due to their previous low values. We also talked about her request for a cortisol level test to address her concerns about frequent breakouts, which could be related to hormonal issues. Patient Instructions - Schedule and complete fasting labs as previously ordered. - Continue monitoring ferritin and iron levels. - Follow up on cortisol level results on ce available. [facility] Medical History Gallbladder polyp Diverticulosis Syncope Left ovarian cyst Iron deficiency PVCs (premature ventricular contractions) Surgical History Previous section Family History Father Substance use disorder Mother Mental health disorder Brother Brain cancer Brother Substance use disorder Son No problems noted. 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 1. Little interest or pleasure in doing things: several days 2. Feeling down, depressed, or hopeless: several days 3. Trouble falling or staying asleep, or sleeping too much: several days 4. Feeling tired or having little energy: several days 5. Poor appetite or overeating: several days 6. Feeling bad about yourself - or that you are a failure or have let yourself or your family down: several days 7. Trouble concentrating on things, such as reading the newspaper or watching television: several days 8. Moving or speaking so slowly that other people could have noticed. Or the opposite - being so fidgety or restless that you have been moving around a lot more than usual: not at all 9. Thoughts that you would be better off or of hurting yourself in some way: not at all Total score: 7 Depression Screening Interpretation: Negative Depression Screening Done: Yes 44599 - PHQ-9 Billing: Yes Source: Developed by Drs. Jeovany Mukherjee, Vale Escoto, Ramin Abdalla and colleagues, with an educational maria t from [employer]. Thrive Questionnaire Date Thrive assessed: 09/10/24 I am a: Patient What is your living situation today?: I have a steady place to live Within the past 12 months, did the food you bought not last and you didn't have the money to get more?: Never true Within the past 12 months, did you worry whether your food would run out before you got money to buy more?: Never true Do you have trouble paying for medicines?: No Do you have trouble getting transportation to medical appointments?: No Do you have trouble paying your heating and electricity bill?: No Do you have trouble taking care of your child, family member or friend?: No Do you have trouble with day-to-day activities such as bathing, preparing meals, shopping, managing finances, etc.?: No Are you currently unemployed and looking for a job?: No Are you interested in more education?: No Please select the resources that you would like help with: None Currently or been in a relationship where the following occur: No concerns reported THRIVE Score: 0 HEIDI-7 AMB Questionnaire HEIDI-7 Date HEIDI - 7 assessed: 04/01/25 Feeling nervous, anxious, or on edge: 2 = More than half the days Not being able to stop or control worryin = More than half the days Worrying too much about different things: 2 = More than half the days Trouble relaxin = More than half the days Being so restless that it is hard to sit still: 2 = More than half the days Becoming easily annoyed or irritable: 2 = More than half the days Feeling afraid as if something awful might happen: 2 = More than half the days Total HEIDI-7 score (0-4 normal; 5-9 mild; 10-14 moderate; 15-21 severe): 14 Source: Developed by Drs. Jeovany Mukherjee, Vale Escoto, Ramin Abdalla and colleagues, with an educational maria t from [employer]. Physical exam (Primary Care) Vital Signs: Last Vital Signs Temp 98.7 F 04/01/25 08:45 Pulse 67 04/01/25 08:45 BP 110/80 04/01/25 08:45 BMI result Body Mass Index 21.8 Tobacco/Smoking Status: Tobacco use Status Tobacco use date assessed 09/17/24 04/01/25 08:53 Patient Tobacco Use Status Never used Tobacco 04/01/25 08:53 e-Cigarette/Vaping Use Never Used 04/01/25 08:53 PHQ-9: PHQ-9 Score PHQ-9: Total score 7 04/01/25 08:53 Depression Screening Interpretation: Negative Thrive Assessment: Date of Thrive Assessment Date Thrive assessed 09/10/24 04/01/25 08:53 Currently or been in a relationship where the following occur: No concerns reported Coding Level of Care Code Est Pt Prev Care 18-39y(75015) Diagnoses Physical exam Z00.00 Gallbladder polyp K82.4 Additional Codes PHQ-9 - 26567 - PHQ-9 Billing: Yes ([id number]) Assessment & Plan Assessment & Plan (1) Physical exam: Code(s): Z00.00 - Encounter for general adult medical examination without abnormal findings Category: Medical (2) Gallbladder polyp: Code(s): K82.4 - Cholesterolosis of gallbladder Category: Medical Plan . Orders: Orders US abdomen limited Today K82.4 - Cholesterolosis of gallbladder Cortisol Random Today Z00.00 - Encounter for general adult medical examination without abnormal findings
[2025-04-01 08:45] VITALS: BP 110/80; PULSE 67; TEMP 37.1; BMI 21.8
--- OUTSIDE RECORDS SUMMARY | 2025-04-01 09:09 | XMS_ITS | Encounter Summary ---
Author Organization [facility] Address [address] [place] [address] Phone Care Team Providers Care Oracle Soa Architect Name Role Phone Ramin Mclean MD Primary Care Provider Noemi morris Encounter Details Date Type Department Care Team (Late st Contact Info) Description 12/07/2009 Documentation [facility] [place] Family Medicine [address] [place] [address] Family Medicine, Physician [address] [place] [address] Social History Tobacco Use Types Packs/Day Years [...] on filedocumented in this encounter Care Teams Oracle Soa Architect Relationship Specialty Start Date End Date Ramin cMlean MD PCP - General 02/10/17 10/13/22 documented as of this encounter
--- OUTSIDE RECORDS SUMMARY | 2025-04-01 09:09 | XMS_ITS | Encounter Summary ---
Author Organization [facility] Address [address] [place] [address] Phone Care Team Providers Care Correction Officer Reformatory Name Role Phone Ramin Mclean MD Primary Care Provider Noemi morris Encounter Details Date Type Department Care Team (Late st Contact Info) Description 12/21/2012 Documentation [facility] [place] [address] [place] [address] Family Medicine, Physician [address] [place] [address] Social History Tobacco Use Types Packs/Day Years [...] on filedocumented in this encounter Care Teams Correction Officer Reformatory Relationship Specialty Start Date End Date Ramin Mclean MD PCP - General 02/10/17 10/13/22 documented as of this encounter
--- OUTSIDE RECORDS SUMMARY | 2025-04-01 09:09 | XMS_ITS | Encounter Summary ---
Author Organization [facility] Address [address] [place] [address] Phone Care Team Providers Care Computer Aided Design Designer Name Role Phone Ramin Mclean MD Primary Care Provider Noemi morris Encounter Details Date Type Department Care Team (Late st Contact Info) Description 12/21/2012 Documentation [facility] [place] [address] [place] [address] Family Medicine, Physician [address] [place] [address] Social History Tobacco Use Types Packs/Day Years [...] on filedocumented in this encounter Care Teams Computer Aided Design Designer Relationship Specialty Start Date End Date Ramin Mclean MD PCP - General 02/10/17 10/13/22 documented as of this encounter
--- OUTSIDE RECORDS SUMMARY | 2025-04-01 09:09 | XMS_ITS | Encounter Summary ---
Author Organization [facility] Address [address] [place] [address] Phone Care Team Providers Care Solar Sales Associate Name Role Phone Ramin Mclean MD Primary Care Provider Noemi morris Encounter Details Date Type Department Care Team (Late st Contact Info) Description 10/04/2012 Documentation [facility] [place] Family Medicine [address] [place] [address] Family Medicine, Physician [address] [place] [address] Social History Tobacco Use Types Packs/Day Years [...] on filedocumented in this encounter Care Teams Solar Sales Associate Relationship Specialty Start Date End Date Ramin Mclean MD PCP - General 02/10/17 10/13/22 documented as of this encounter
--- OUTSIDE RECORDS SUMMARY | 2025-04-01 09:09 | XMS_ITS | Encounter Summary ---
Author Organization [facility] Address [address] [place] [address] Phone Care Team Providers Care Software Recruiter Name Role Phone Ramin Mclean MD Primary Care Provider Noemi morris Encounter Details Date Type Department Care Team (Late st Contact Info) Description 07/24/2010 [place] [facility] [place] [address] [place] [address] Family Medicine, Physician [address] [place] [address] Social History Tobacco Use Types Packs/Day Years [...] on filedocumented in this encounter Care Teams Software Recruiter Relationship Specialty Start Date End Date Ramin Mclean MD PCP - General 02/10/17 10/13/22 documented as of this encounter
--- OUTSIDE RECORDS SUMMARY | 2025-04-01 09:09 | XMS_ITS | Encounter Summary ---
Author Organization [facility] Address [address] [place] [address] Phone Care Team Providers Care Mine Foreman Name Role Phone Ramin Mclean MD Primary Care Provider Noemi morris Encounter Details Date Type Department Care Team (Late st Contact Info) Description 03/05/2013 Documentation [facility] [place] [address] [place] [address] Family Medicine, Physician [address] [place] [address] Social History Tobacco Use Types Packs/Day Years [...] on filedocumented in this encounter Care Teams Mine Foreman Relationship Specialty Start Date End Date Ramin Mclean MD PCP - General 02/10/17 10/13/22 documented as of this encounter
--- OUTSIDE RECORDS SUMMARY | 2025-04-01 09:09 | XMS_ITS | Encounter Summary ---
Author Organization [facility] Address [address] [place] [address] Phone Care Team Providers Care Format Proofreader Name Role Phone Ramin Mclean MD Primary Care Provider Noemi omrris Encounter Details Date Type Department Care Team (Late st Contact Info) Description 12/29/[address] [facility] [place] Family Medicine [address] [place] [address] Family Medicine, Physician [address] [place] [address] Social History Tobacco Use Types Packs/Day Years [...] on filedocumented in this encounter Care Teams Format Proofreader Relationship Specialty Start Date End Date Ramin Mclean MD PCP - General 02/10/17 10/13/22 documented as of this encounter
--- OUTSIDE RECORDS SUMMARY | 2025-04-01 09:09 | XMS_ITS | Encounter Summary ---
Author Organization [facility] Address [address] [place] [address] Phone Care Team Providers Care Paving Stone Installer Name Role Phone Ramin Mclean MD Primary Care Provider Noemi morris Encounter Details Date Type Department Care Team (Late st Contact Info) Description 03/07/2013 Documentation [facility] [place] [address] [place] [address] Family Medicine, Physician [address] [place] [address] Social History Tobacco Use Types Packs/Day Years [...] on filedocumented in this encounter Care Teams Paving Stone Installer Relationship Specialty Start Date End Date Ramin Mclean MD PCP - General 02/10/17 10/13/22 documented as of this encounter
--- OUTSIDE RECORDS SUMMARY | 2025-04-01 09:09 | XMS_ITS | Clinical Summary ---
Author Organization [facility] Address [id number] [place] [phone] Care Team Providers Care Road Driver Name Role Phone AndraWhit Daniels DO Primary Care Pro vider Social History [...] 05/05/2018 05/05/2008, 03/15/2004, 02/27/1998, Additional history exists Depression Screening 07/03/2024 COVID-19 Vaccine ( season) 2025 Influenza Vaccine (#1) 2025 Hepatitis B Vaccines Completed 02/08/1993, 1992, 1992 [...] age to complete this topic Meningococcal B Vaccine Aged Out No l onger eligible based on patient's age to complete this topic Pneumococcal Vaccine: Pediatrics (0 to 5 Years) and At-Risk Patients (6 to 49 Years) Aged Out No longer eligible based on patient's age to complete this topic RSV Immunization Patients Under 20 months Aged Out No longer eligible based on patient's age to complete this topic Varicella Vaccines Aged Out No longer eligible based on patient's age to complete this topic Care Teams Road Driver Relationship Specialty Start Date End Date Whit Mccrary DO PCP - General Internal Medicine 10/08/13
--- OUTSIDE RECORDS SUMMARY | 2025-04-01 09:09 | XMS_ITS | Encounter Summary ---
Author Organization [facility] Address [address] [place] [address] Phone Care Team Providers Care Die Storage Clerk Name Role Phone Ramin Mclean MD Primary Care Provider Noemi morris Encounter Details Date Type Department Care Team (Late st Contact Info) Description 12/09/2013 Conversion Encounter [facility] - [address] [address] Ramin Mclean MD Social History Tobacco Use Types Packs/Day Years [...] on filedocumented in this encounter Care Teams Die Storage Clerk Relationship Specialty Start Date End Date Ramin Mclean MD PCP - General 02/10/17 10/13/22 documented as of this encounter
--- OUTSIDE RECORDS SUMMARY | 2025-04-01 09:09 | XMS_ITS | Encounter Summary ---
Author Organization [facility] Address [address] [place] [address] Phone Care Team Providers Care Nursery Rn Name Role Phone Ramin Mclean MD Primary Care Provider Noemi morris Encounter Details Date Type Department Care Team (Late st Contact Info) Description 12/07/2009 Documentation [facility] [place] [address] [place] [address] Family Medicine, Physician [address] [place] [address] Social History Tobacco Use Types Packs/Day Years [...] on filedocumented in this encounter Care Teams Nursery Rn Relationship Specialty Start Date End Date Ramin Mclean MD PCP - General 02/10/17 10/13/22 documented as of this encounter
--- OUTSIDE RECORDS SUMMARY | 2025-04-01 09:09 | XMS_ITS | Clinical Summary ---
Author Organization [facility] Address [address] [place] [phone] Phone Care Team Providers Care Field Service Engineer Name Role Phone Unavailable Primary Care Provider [...] 78 03/05/2013 12:00 AM EDT Temperature 36 C (96.8 F) 05/21/2013 12:00 AM EST Respiratory Rate - [...] 02/27/1998, Additional history exists Influenza Vaccines (#1) 2025 COVID-19 Vaccine ( season) 2025 Hepatitis B Vaccines Completed 02/08/1993, 1992, [...] complete this topic Procedures * Due to [place] law, this organization might not be sharing sensitive test results. Procedure Name Priority Date/Time Associated Diagnosis Comments CHLAMYDIA AND GONORRHEA, AMPLIFIED Routine 03/04/2011 1:17 PM EDT from Last 3 Months or Most Recently Relevant to Health Maintenance Results * Due to [place] law, this organization might not be sharing sensitive test results. * Chlamydia and Gonorrhoea, Amplified (03/04/2011 1:17 PM EDT) URINE CHLAMYDIA AMP PROBE NEGATIVE [facility] Comment: NO CHLAMYDIA TRACHOMATIS RNA DETECTED IN THIS PATIENT'S SAMPLE. (REFERENCE RANGE/NORMAL VALUE: NOT DETECTED) URINE GC AMP PROBE NEGATIVE [facility] Comment: NO NEISSERIA GONORRHOEAE RNA DETECTED IN THIS PATIENT'S SAMPLE. (REFERENCE RANGE/NORMAL VALUE: NOT DETECTED) NOTE: THIS TEST USES BASEBALL GLOVE STUFFER MEDIATED AMPLIFICATION METHOD TO DETECT rRNA FROM [...] AGENTS. 03/04/2011 1:17 PM EDT Narrative [facility] - 03/04/2011 1:17 PM EDT URINE CHLAMYDIA GC AMP PROBE us Kary Higuera NP LAB MICROBIOLOGY - GENERA L ORDERABLES Final Result [facility] [address] [place] [id number], [place] from Last 3 Months or Most Recently Relevant to Health Maintenance
--- OUTSIDE RECORDS SUMMARY | 2025-04-01 09:09 | XMS_ITS | Encounter Summary ---
Author Organization [facility] Address [address] [place] [address] Phone Care Team Providers Care Contract Management Specialist Name Role Phone Ramin Mclean MD Primary Care Provider Noemi morris Encounter Details Date Type Department Care Team (Late st Contact Info) Description 02/16/2017 Conversion Encounter [facility] - [address] [phone] Social History Tobacco Use Types Packs/Day Years [...] on filedocumented in this encounter Care Teams Contract Management Specialist Relationship Specialty Start Date End Date Ramin Mclean MD PCP - General 02/10/17 10/13/22 documented as of this encounter
== END 2025-04-01 09:25 | disposition home or self-care (01) ==
LOC: HO.HMCC 08:40
PROVIDERS: PCP Nurse Practitioner Family; Visit Provider Nurse Practitioner Family
DX: Z00.00 Encounter for general adult medical examination without abnormal findings (principal); K82.4 Cholesterolosis of gallbladder

== ENCOUNTER → 2025-04-01 08:40 | Outpatient (BNVA) | payer OTHER, SELFPAY | PROVIDERS: PCP Nurse Practitioner Family; Visit Provider Nurse Practitioner Family | DX: Z00.00 Encounter for general adult medical examination without abnormal findings (principal); R79.89 Other specified abnormal findings of blood chemistry; K82.4 Cholesterolosis of gallbladder | CPT/HCPCS: 96127 ==

== ENCOUNTER 2025-04-16 10:12 | Outpatient (REF) | payer OTHER, SELFPAY ==
--- OUTSIDE RECORDS SUMMARY | 2025-04-16 12:06 | XMS_ITS | Encounter Summary ---
Author Organization [facility] Address [address] [place] [address] Phone Care Team Providers Care Chemical Analyst Name Role Phone Ramin Mclean MD Primary Care Provider Noemi morris Encounter Details Date Type Department Care Team (Late st Contact Info) Description 10/04/2012 Documentation [facility] [place] Family Medicine [address] [place] [address] Family Medicine, Physician [address] [place] [address] Social History Tobacco Use Types Packs/Day Years [...] on filedocumented in this encounter Care Teams Chemical Analyst Relationship Specialty Start Date End Date Ramin Mclean MD PCP - General 02/10/17 10/13/22 documented as of this encounter
--- OUTSIDE RECORDS SUMMARY | 2025-04-16 12:06 | XMS_ITS | Encounter Summary ---
Author Organization [facility] Address [address] [place] [address] Phone Care Team Providers Care Sales Support Manager Name Role Phone Ramin Mclean MD Primary Care Provider Noemi morris Encounter Details Date Type Department Care Team (Late st Contact Info) Description 12/07/2009 [place] [facility] [address] [place] [address] Family Medicine, Physician [address] [place] [address] Social History Tobacco Use Types Packs/Day Years [...] on filedocumented in this encounter Care Teams Sales Support Manager Relationship Specialty Start Date End Date Ramin Mclean MD PCP - General 02/10/17 10/13/22 documented as of this encounter
--- OUTSIDE RECORDS SUMMARY | 2025-04-16 12:06 | XMS_ITS | Clinical Summary ---
Author Organization [facility] Address [address] [place] [phone] Phone Care Team Providers Care Multiple Drum Sander Helper Name Role Phone Unavailable Primary Care Provider [...] complete this topic Procedures * Due to [place] Win[place] law, this organization might not be sharing sensitive test results. Procedure Name Priority Date/Time Associated Diagnosis Comments CHLAMYDIA AND GONORRHEA, AMPLIFIED Routine 03/04/2011 1:17 PM EDT from Last 3 Months or Most Recently Relevant to Health Maintenance Results * Due to [place] Win[place] law, this organization might not be sharing sensitive test results. * Chlamydia and Gonorrhoea, Amplified (03/04/2011 1:17 PM EDT) URINE CHLAMYDIA AMP PROBE NEGATIVE [facility] Comment: NO CHLAMYDIA TRACHOMATIS RNA DETECTED IN THIS PATIENT'S SAMPLE. (REFERENCE RANGE/NORMAL VALUE: NOT DETECTED) URINE GC AMP PROBE NEGATIVE [facility] Comment: NO NEISSERIA GONORRHOEAE RNA DETECTED IN THIS PATIENT'S SAMPLE. (REFERENCE RANGE/NORMAL VALUE: NOT DETECTED) NOTE: THIS TEST USES MANAGER AGRICULTURAL MEDIATED AMPLIFICATION METHOD TO DETECT rRNA FROM [...] OTHER AGENTS. 03/04/2011 1:17 PM EDT Narrative [facility] - 03/04/2011 1:17 PM EDT URINE CHLAMYDIA GC AMP PROBE us Kary Higuera NP LAB MICROBIOLOGY - GENERA L ORDERABLES Final Result [facility] [address] [place] [id number], [place] from Last 3 Months or Most Recently Relevant to Health Maintenance
--- OUTSIDE RECORDS SUMMARY | 2025-04-16 12:06 | XMS_ITS | Encounter Summary ---
Author Organization [facility] Address [address] [place] [phone] Phone Care Team Providers Care Clinical Staff Rn Name Role Phone Ramin Mclean MD Primary Care Provider Noemi morris Encounter Details Date Type Department Care Team (Late st Contact Info) Description 12/21/2012 Documentation [facility] [place] Family Medicine [address] [place] [address] Family Medicine, Physician [address] [place] [address] Social History Tobacco Use Types Packs/Day Years [...] on filedocumented in this encounter Care Teams Clinical Staff Rn Relationship Specialty Start Date End Date Ramin Mclean MD PCP - General 02/10/17 10/13/22 documented as of this encounter
--- OUTSIDE RECORDS SUMMARY | 2025-04-16 12:06 | XMS_ITS | Encounter Summary ---
Author Organization [facility] Address [address] [place] [address] Phone Care Team Providers Care Personal Vehicle Advisor Name Role Phone Ramin Mclean MD Primary Care Provider Noemi morris Encounter Details Date Type Department Care Team (Late st Contact Info) Description 12/07/2009 Documentation [facility] [place] [address] [place] [address] Family Medicine, Physician [address] [place] [address] Social History Tobacco Use Types Packs/Day Years [...] on filedocumented in this encounter Care Teams Personal Vehicle Advisor Relationship Specialty Start Date End Date Ramin Mclean MD PCP - General 02/10/17 10/13/22 documented as of this encounter
--- OUTSIDE RECORDS SUMMARY | 2025-04-16 12:06 | XMS_ITS | Encounter Summary ---
Author Organization [facility] Address [address] [place] [phone] Phone Care Team Providers Care Baffle Mounter Name Role Phone Ramin Mclean MD Primary Care Provider Noemi morris Encounter Details Date Type Department Care Team (Late st Contact Info) Description 12/21/2012 [place] [facility] [place] [address] [place] [address] Family Medicine, Physician [address] [place] [address] Social History Tobacco Use Types Packs/Day Years [...] on filedocumented in this encounter Care Teams Baffle Mounter Relationship Specialty Start Date End Date Ramin Mclean MD PCP - General 02/10/17 10/13/22 documented as of this encounter
--- OUTSIDE RECORDS SUMMARY | 2025-04-16 12:06 | XMS_ITS | Encounter Summary ---
Author Organization [facility] Address [address] [place] [address] Phone Care Team Providers Care Snow Fence Erector Name Role Phone Ramin Mclean MD Primary Care Provider Noemi morris Encounter Details Date Type Department Care Team (Late st Contact Info) Description 02/16/2017 Conversion Encounter [facility] - [address] [address] Social History Tobacco Use Types Packs/Day Years [...] on filedocumented in this encounter Care Teams Snow Fence Erector Relationship Specialty Start Date End Date Ramin Mclean MD PCP - General 02/10/17 10/13/22 documented as of this encounter
--- OUTSIDE RECORDS SUMMARY | 2025-04-16 12:06 | XMS_ITS | Clinical Summary ---
Author Organization [facility] Address [address] [place] [phone] Care Team Providers Care Round Corner Cutter Operator Name Role Phone AndraWhit Daniels DO Primary [...] ( season) 2025 Influenza Vaccine (#1) 2025 RSV Immunization Adult Patients (1 - 1-dose 75+ series) 2067 Hepatitis B Vaccines Completed 02/08/1993, 1992, 1992 [...] age to complete this topic Care Teams Round Corner Cutter Operator Relationship Specialty Start Date End Date Whit Mccrary DO PCP - General Internal Medicine 10/08/13
--- OUTSIDE RECORDS SUMMARY | 2025-04-16 12:06 | XMS_ITS | Encounter Summary ---
Author Organization [facility] Address [address] [place] [address] Phone Care Team Providers Care Roll Hauler Name Role Phone Ramin Mclean MD Primary Care Provider Noemi morris Encounter Details Date Type Department Care Team (Late st Contact Info) Description 12/09/2013 Conversion Encounter [facility] - [address] [address] Ramin Mclean MD Social History Tobacco Use [...] on filedocumented in this encounter Care Teams Roll Hauler Relationship Specialty Start Date End Date Ramin Mclean MD PCP - General 02/10/17 10/13/22 documented as of this encounter
--- OUTSIDE RECORDS SUMMARY | 2025-04-16 12:06 | XMS_ITS | Encounter Summary ---
Author Organization [facility] Address [address] [place] [address] Phone Care Team Providers Care Industrial Safety And Health Manager Name Role Phone Ramin Mclean MD Primary Care Provider Noemi morris Encounter Details Date Type Department Care Team (Late st Contact Info) Description 03/05/2013 Documentation [facility] [place] [address] [place] [address] Family Medicine, Physician [address] [place] [address] Social History Tobacco Use Types Packs/Day Years [...] on filedocumented in this encounter Care Teams Industrial Safety And Health Manager Relationship Specialty Start Date End Date Ramin Mclean MD PCP - General 02/10/17 10/13/22 documented as of this encounter
--- OUTSIDE RECORDS SUMMARY | 2025-04-16 12:06 | XMS_ITS | Encounter Summary ---
Author Organization [facility] Address [address] [place] [address] Phone Care Team Providers Care Certified Travel Counselor Name Role Phone Ramin Mclean MD Primary Care Provider Noemi morris Encounter Details Date Type Department Care Team (Late st Contact Info) Description 03/07/2013 Documentation [facility] [place] Family Medicine [address] [place] [address] Family Medicine, Physician [address] [place] [address] Social History Tobacco Use Types Packs/Day Years [...] on filedocumented in this encounter Care Teams Certified Travel Counselor Relationship Specialty Start Date End Date Ramin Mclean MD PCP - General 02/10/17 10/13/22 documented as of this encounter
--- OUTSIDE RECORDS SUMMARY | 2025-04-16 12:06 | XMS_ITS | Patient Health Record ---
Author Organization [facility] Address [address] [place] [address] Support Name Relationship Address Phone MORIAH NUNEZ Guarantor Unknown [phone] Reason For Referral No Information Problems Problem Type SNOMED Code ICD Code Onset Dates Problem Status W/U Status Risk Notes Problem Primigravida (430221277) Supervision of normal first (V22.0) Active confirmed Diag Plan Of Treatment No Information Insurance Providers Payer Name Payer Address Payer Phone Subscriber Number Group Number Insured Name Patient Relationship to Insured Coverage Start Date Coverage End Date [employer] [address] [place], [place] [id number] MORIAH NUNEZ Self - patient is the insured
--- OUTSIDE RECORDS SUMMARY | 2025-04-16 12:06 | XMS_ITS | Encounter Summary ---
Author Organization [facility] Address [address] [place] [address] Phone Care Team Providers Care Chainman Name Role Phone Ramin Mclean MD Primary Care Provider Noemi morris Encounter Details Date Type Department Care Team (Late st Contact Info) Description 12/29/2011 Documentation [facility] [place] [address] [place] [address] Family Medicine, Physician [address] [place] [address] Social History Tobacco Use Types Packs/Day Years [...] on filedocumented in this encounter Care Teams Chainman Relationship Specialty Start Date End Date Ramin Mclean MD PCP - General 02/10/17 10/13/22 documented as of this encounter
--- OUTSIDE RECORDS SUMMARY | 2025-04-16 12:06 | XMS_ITS | Encounter Summary ---
Author Organization [facility] Address [address] [place] [address] Phone Care Team Providers Care Glass Cutting Machine Operator Name Role Phone Ramin Mclean MD Primary Care Provider Noemi morris Encounter Details Date Type Department Care Team (Late st Contact Info) Description 07/24/2010 Documentation [facility] [place] Family Medicine [address] [place] [address] Family Medicine, Physician [address] [place] [address] Social History Tobacco Use Types Packs/Day Years [...] on filedocumented in this encounter Care Teams Glass Cutting Machine Operator Relationship Specialty Start Date End Date Ramin Mclean MD PCP - General 02/10/17 10/13/22 documented as of this encounter
[2025-04-16 13:07] LABS: MANUAL DIFF FLAG NO
[2025-04-16 13:16] LABS: Hematocrit 37.5 % (37.0-47.0); Hemoglobin 11.4 g/dl (12.0-16.0); Imm Gran Abs Auto 0.00 X10*3/uL (0.00-0.03); Imm Gran Pct Auto 0.0 % (0.0-0.4); Lymphocytes Absolute Auto 1.3 X10*3/uL (1.2-4.9); Mean Corpuscular HGB Conc 30.4 g/dl (31.0-35.0); Mean Corpuscular Hemoglobin 25.1 pg (27.0-33.0); Mean Corpuscular Volume 82.6 fL (80.0-98.0); NRBC Abs Auto 0.000 X10*3/uL (0.0-0.012); NRBC Pct Auto 0.0 /100WBC (0.0-0.2); Platelet Count 234 X10*3/uL (160-400); Red Blood Count 4.54 X10*6/uL (4.20-5.50); White Blood Count 3.9 X10*3/uL (4.8-10.8)
[2025-04-16 14:08] LABS: Alanine Aminotransferase 20 U/L (0-31); Albumin Level 4.6 g/dL (3.5-5.0); Alkaline Phosphatase 54 U/L (39-117); Anion Gap 11 (12-20); Aspartate Amino Transferase 18 U/L (5-31); Blood Urea Nitrogen 15 mg/dL (9-16); Calcium 9.0 mg/dL (8.4-10.2); Carbon Dioxide 22 mmol/L (22-29); Chloride 112 mmol/L (96-108); Estimated Glomerular Filt Rate > 60; Ferritin 5 ng/mL (10-122); Iron 24 mcg/dL (30-160); Percent Iron Saturation 7 % (15-50); Potassium 3.9 mmol/L (3.3-5.1); Sodium 141 mmol/L (135-145); Total Iron Binding Capacity 340 mcg/dL (228-428); Total Protein 7.1 g/dL (6.5-8.0); Unsaturated Iron Binding 316 ug/dL
[2025-04-16 14:36] LABS: Folate 10.8 ng/mL (> or = 4.0); Vitamin B12 319 pg/mL (200-900)
== END 2025-04-16 10:13 | disposition home or self-care (01) ==
LOC: HO.HMGCLDS 10:12
PROVIDERS: PCP Nurse Practitioner Family; Visit Provider Nurse Practitioner Family
DX: Z00.00 Encounter for general adult medical examination without abnormal findings (principal); E61.1 Iron deficiency; D64.9 Anemia, unspecified
CPT/HCPCS: 36415; 80053; 82533; 82607; 82728; 82746; 83540; 84443; 85025

== ENCOUNTER 2025-06-16 09:00 | Outpatient (RCR) | payer OTHER, SELFPAY ==
[2025-04-25 11:32] VITALS: BP 112/65; PULSE 57; RESP 16; TEMP 36.6; O2SAT 100
[2025-04-29 09:27] VITALS: BP 134/69; RESP 18; TEMP 36.6
[2025-05-06 08:55] VITALS: BP 110/69; PULSE 57; RESP 16; O2SAT 100
[2025-05-13 09:01] VITALS: BP 112/74; PULSE 78; RESP 16; TEMP 36.6; O2SAT 100
[2025-05-13 09:24] LABS: Hematocrit 39.8 % (37.0-47.0); Hemoglobin 12.8 g/dl (12.0-16.0); Mean Corpuscular HGB Conc 32.2 g/dl (31.0-35.0); Mean Corpuscular Hemoglobin 26.4 pg (27.0-33.0); Mean Corpuscular Volume 82.2 fL (80.0-98.0); NRBC Abs Auto 0.000 X10*3/uL (0.0-0.012); NRBC Pct Auto 0.0 /100WBC (0.0-0.2); Platelet Count 189 X10*3/uL (160-400); Red Blood Count 4.84 X10*6/uL (4.20-5.50); White Blood Count 4.7 X10*3/uL (4.8-10.8)
[2025-05-13] MEDS: 0.9 % Sodium Chloride Flush 10 ML SYRINGE 5 ML IVFLUSH (09:42)
[2025-05-13 09:56] LABS: Ferritin 133 ng/mL (10-122)
[2025-05-20 08:57] VITALS: BP 118/74; PULSE 59; RESP 16; TEMP 36.7; O2SAT 99
[2025-06-03 08:59] VITALS: BP 128/73; PULSE 58; RESP 16; TEMP 36.6; O2SAT 99
[2025-06-10 08:59] VITALS: BP 111/70; PULSE 58; RESP 16; TEMP 36.7; O2SAT 99
[2025-06-16 09:07] VITALS: BP 120/81; PULSE 68; RESP 16; TEMP 36.6; O2SAT 98
[2025-06-16 09:35] LABS: Hematocrit 41.1 % (37.0-47.0); Hemoglobin 14.0 g/dl (12.0-16.0); Mean Corpuscular HGB Conc 34.1 g/dl (31.0-35.0); Mean Corpuscular Hemoglobin 28.3 pg (27.0-33.0); Mean Corpuscular Volume 83.2 fL (80.0-98.0); NRBC Abs Auto 0.000 X10*3/uL (0.0-0.012); NRBC Pct Auto 0.0 /100WBC (0.0-0.2); Platelet Count 156 X10*3/uL (160-400); Red Blood Count 4.94 X10*6/uL (4.20-5.50); White Blood Count 3.9 X10*3/uL (4.8-10.8)
[2025-06-16 10:09] LABS: Ferritin 369 ng/mL (10-122)
== END 2025-06-16 10:14 | disposition home or self-care (01) ==
LOC: HO.INF 09:00
PROVIDERS: Visit Provider Internal Medicine Medical Oncology
DX: E61.1 Iron deficiency (principal)
CPT/HCPCS: 36415; 82728; 85027; 96365; 96374; J1756